=== PATIENT | female | born 1975 | race Caucasian/White ===

== ENCOUNTER 2018-10-24 07:56 | Emergency (ER) | payer BC, OTHER ==
[~2018-10-24] VITALS: Ht 170.2 cm; Wt 118.4 kg
[~2018-10-24 07:56] MED LIST: ACETAMINOPHN-B1 EACH PO; AUGMENTIN875 MG PO; MACRODANTIN100 MG PO; PROAIR HFA INH8.5 GM; TOPIRAMATE50 MG PO; Z.0.LISINOPRIL20 MG PO; Z.0.TESSALON PERLE10 PO; Z.0.TOPAMAX100 MG MT
--- OUTSIDE RECORDS SUMMARY | 2018-10-24 07:59 | XMS REPORT | Encounter Summary ---
Author Organization Unknown Address [address] [place] [address] Phone [phone] Reason for Visit Medical Complaint Instructions 1. Acute urinary tract infection urinalysis, dipstick Macrobid 100 mg capsule culture, urine Discussion Note: None recorded. Patient educational handouts: No information available. Plan of Care Patient Instructions take antibiotics as prescribed. increase fluids. otc tylenol or ibuprofen prn for pain. will contact patient when results of culture are finalized. follow up pcp Reminders Provider Appointments None recorded. Lab Urinalysis, Dipstick 06/11/2017 [facility] Culture, Urine 06/11/2017 [facility] Referral None recorded. Procedures None recorded. Surgeries None recorded. Imaging None recorded. Medications Name Start Date cyclobenzaprine 10 mg tablet Macrobid 100 mg capsule Take 1 capsule every 12 hours by oral route for 5 days. methocarbamol 750 mg tablet pentazocine 50 mg-naloxone 0.5 mg tablet Promethazine VC 6.25 mg-5 mg/5 mL syrup Medications Administered None recorded. Vitals Height Weight BMI Blood Pressure 5 ft 7 in 270 lbs 42.3 kg/m2 120/80 mm[Hg] Lab Results Date Name Specimen Result Interpretation Description Value Range Status Address Urinalysis, Dipstick Color : Yellow [facility]: [address] [place] [address] Clarity : Clear [facility]: [address] [place] [address] Leukocytes : Small [facility]: [address] [place] [address] Nitrites : Positive [facility]: [address] [place] [address] Urobilinogen : Normal [facility]: [address] [place] [address] Protein : 300 [facility]: [address] [place] [address] Ph : 6.5 [facility]: [address] [place] [address] Blood : Small [facility]: [address] [place] [address] Specific Sigurd : 1.005 [facility]: [address] [place] [address] Ketones : Negative [facility]: [address] [place] [address] Bilirubin : Negative [facility]: [address] [place] [address] Glucose Negative [facility]: [address] [place] [address] Comments : [facility]: [facility] Allergies Code Code System Name Reaction Severity Status Onset 267 RxNorm Codeine Rash Severe Active 151026 RxNorm Levaquin Anaphylaxis Severe Active Sulfa (Sulfonamide Antibiotics) Itching Severe Active 648498 RxNorm Vicodin Itching Severe Active Problems Name Status Onset Date Source Acute Maxillary Sinusitis Active Encounter Sore Throat Symptom Active Encounter Allergic Rhinitis Active Encounter Respiratory Tract Congestion and Cough Active Encounter Procedures Date Name Performed by Cholecystectomy Information not available Vaccine List Vaccine Type influenza, injectable, quadrivalent 07/18/2016 Social History Smoking Status Never Smoker Past Encounters 06/11/2017 Acute Urinary Tract Infection Yury Matt, [facility]: [address] [place] [address], Ph. History of Present Illness [id number] Reported By: Patient HPI: Location: urethra. Quality: burning. Severity: mild, moderate. Duration: constant. Onset/Timing: gradual. Context: no known exposure to STD, no prior history of STDs, history of urine cultures/antibiotic treatment, wipes anterior to posterior, voids after intercourse. Modifying factors OTC medication. Associated Symptoms: no fever/chills, no flank pain, no jaundice, no blood in the urine, no pain during urination, no vaginal discharge, no blisters on genitals, no rash on genitals, no muscle aches, no headache, urgency, urinary frequency Review of Systems:ROS as noted in the HPI Review of Systems Basic Reported By: Patient Physical Exam Adult Basic, Adult Female Complete Reported By: Patient Constitutional: General Appearance: healthy-appearing, morbidly obese. Level of Distress: NAD. Ambulation: ambulating normally Psychiatric: Mental Status: active and alert Lungs: Respiratory effort: no dyspnea, no tachypnea, no use of accessory muscles, no intercostal retractions. Auscultation: breath sounds normal Cardiovascular: Heart Auscultation: RRR, no murmurs Abdomen: Inspection and Palpation: soft, non-distended, no tenderness, no guarding, no rebound tenderness, no masses, no CVA tenderness
--- OUTSIDE RECORDS SUMMARY | 2018-10-24 07:59 | XMS REPORT ---
Author Author [facility] Address Unknown Phone Unavailable Care Team Providers Care Weigher Bulker Name Role Phone LAYNE GOLDEN Unavailable Unavailable Payers Payer Name Policy Type Policy Number Effective Date Expiration Date Problems This patient has no known problems. Allergies, Adverse Reactions, Alerts Allergy Name Allergy Type Status Severity Reaction(s) Onset Date Inactive Date Treating Clinician Comments codeine phosphate DA Active [place] 2017-12-14 00:00:00 hydrocodone bit DA Active [place] 2017-12-14 00:00:00 Cephalexin Monohydrate DA Active [place] 2017-12-14 00:00:00 morphine DA Active 2017-12-14 00:00:00 sulfamethoxazole DA Active 2017-12-14 00:00:00 trimethoprim DA Active 2017-12-14 00:00:00 clarithromycin DA Active 2017-12-14 00:00:00 levofloxacin DA Active [place] 2017-12-14 00:00:00 Medications This patient has no known medications. Results Test Description Test Time Test Comments Text Results Atomic Results Result Comments CT ABDOMEN/PELVIS [place] [address] Patient Name: FERNANDO SHIRLEY MR #: [id number] : 1975 Age/Sex: 42/F Req #: [id number] Adm Physician: Ordered by: LAYNE GOLDEN MD Report #: [id number] Location: ER Room/Bed: Procedure: [id number] CT/CT ABDOMEN/PELVIS WO Exam Date: 04/07/17 Exam Time: 0745 REPORT STATUS: Signed PROCEDURE: CT ABDOMEN AND PELVIS WITHOUT CONTRAST TECHNIQUE: The abdomen and pelvis were scanned utilizing a multidetector helical scanner from the diaphragm to the lesser trochanter. No IV contrast was administered as per physician request. Coronal and sagittal multiplanar reformations were obtained. COMPARISON: CT abdomen and pelvis 10/27/2016. CT abdomen and pelvis 05/17/2016. INDICATIONS: RIGHT FLANK PAIN, URINARY FREQUENCY FINDINGS: ABSENCE OF INTRAVENOUS CONTRAST DECREASES SENSITIVITY FOR DETECTION OF FOCAL LESIONS AND VASCULAR PATHOLOGY. LOWER THORAX: Normal. HEPATOBILIARY: No focal hepatic lesions. No biliary ductal dilatation. Stable hypodensity in the right lobe of the liver, series 3 image 14. SPLEEN: No splenomegaly. PANCREAS: No focal masses or ductal dilatation. ADRENALS: No adrenal nodules. KIDNEYS/URETERS: No hydronephrosis, stones, or solid mass lesions. PELVIC ORGANS/BLADDER: Left ovarian cyst. Normal right ovary. Normal uterus. Normal urinary bladder. PERITONEUM / RETROPERITONEUM: No free air or fluid. LYMPH NODES: No lymphadenopathy. VESSELS: Unremarkable. GI TRACT: No distention or wall thickening. Normal appendix. Moderate amount obtained feces limits intraluminal evaluation of the colon. BONES AND SOFT TISSUES: Minimal degenerative changes of the lumbar spine. Bilateral flank injection granulomas. IMPRESSION: No acute abnormality of the abdomen and pelvis. Dictated by: Ev Leyva M.D. on 04/07/2017 at 9:10 Electronically approved by: Ev Leyva M.D. on 04/07/2017 at 9:10 Dictated By: EV LEYVA MD 9 Transcribed By: CHEL on 04/07/17909 COPY TO: LAYNE GOLDEN MD
--- OUTSIDE RECORDS SUMMARY | 2018-10-24 07:59 | XMS REPORT | Continuity of Care Document ---
Author Author [facility] Address Unknown Phone Unavailable Problems Problem Status Onset Date Classification Date Reported Comments Source Acute urinary tract infection 06/11/2017 Diagnosis 06/11/2017 [facility] Dysuria 10/26/2016 Diagnosis 10/26/2016 [facility] Candidiasis of vagina 10/26/2016 Diagnosis 10/26/2016 [facility] Acute Maxillary Sinusitis Problem 06/11/2017 [facility] Sore Throat Symptom Problem 06/11/2017 [facility] Allergic Rhinitis Problem 06/11/2017 [facility] Respiratory Tract Congestion and Cough Problem 06/11/2017 [facility] Medications Medication Details Route Status Patient Instructions Ordering Provider Order Date Source Cyclobenzaprine hydrochloride 10 MG Oral Tablet cyclobenzaprine 10 mg tablet Active [facility] NITROFURANTOIN, MACROCRYSTALS 25 MG / Nitrofurantoin, Monohydrate 75 MG Oral Capsule [Macrobid] Macrobid 100 mg capsule Take 1 capsule every 12 hours by oral route for 5 days. Active [facility] Methocarbamol 750 MG Oral Tablet methocarbamol 750 mg tablet Active [facility] Naloxone 0.5 MG / Pentazocine 50 MG Oral Tablet pentazocine 50 mg-naloxone 0.5 mg tablet Active [facility] Phenylephrine Hydrochloride 1 MG/ML / Promethazine Hydrochloride 1.25 MG/ML Oral Solution Promethazine VC 6.25 mg-5 mg/5 mL syrup Active [facility] Fluconazole 150 MG Oral Tablet [Diflucan] Diflucan 150 mg tablet Take 1 tablet every day by oral route for 1 day. Active [facility] Allergies, Adverse Reactions, Alerts Substance Category Reaction Severity Reaction type Status Date Reported Comments Source Codeine Rash Severe Allergy to substance 11/11/2012 [facility] Levaquin Anaphylaxis Severe Allergy to substance 11/11/2012 [facility] Vicodin Itching Severe Allergy to substance 11/11/2012 [facility] Sulfa (Sulfonamide Antibiotics) Itching Severe Allergy to substance 12/23/2013 [facility] Immunizations Immunization Date Given Site Status Last Updated Comments Source influenza, injectable, quadrivalent 07/18/2016 completed [facility] Results Order Name Results Value Reference Range Date Interpretation Comments Source Urinalysis macro (dipstick) panel - Urine COLOR : Yellow 06/11/2017 [facility] Urinalysis macro (dipstick) panel - Urine CLARITY : Clear 06/11/2017 [facility] Urinalysis macro (dipstick) panel - Urine LEUKOCYTES : Small 06/11/2017 [facility] Urinalysis macro (dipstick) panel - Urine NITRITES : Positive 06/11/2017 [facility] Urinalysis macro (dipstick) panel - Urine UROBILINOGEN : Normal 06/11/2017 [facility] Urinalysis macro (dipstick) panel - Urine PROTEIN : 300 06/11/2017 [facility] Urinalysis macro (dipstick) panel - Urine pH : 6.5 06/11/2017 [facility] Urinalysis macro (dipstick) panel - Urine BLOOD : Small 06/11/2017 [facility] Urinalysis macro (dipstick) panel - Urine SPECIFIC GRAVITY : 1.005 06/11/2017 [facility] Urinalysis macro (dipstick) panel - Urine KETONES : Negative 06/11/2017 [facility] Urinalysis macro (dipstick) panel - Urine BILIRUBIN : Negative 06/11/2017 [facility] Urinalysis macro (dipstick) panel - Urine GLUCOSE Negative 06/11/2017 [facility] Urinalysis macro (dipstick) panel - Urine COLOR : Red 10/26/2016 [facility] Urinalysis macro (dipstick) panel - Urine CLARITY : Clear 10/26/2016 [facility] Urinalysis macro (dipstick) panel - Urine LEUKOCYTES : Large 10/26/2016 [facility] Urinalysis macro (dipstick) panel - Urine NITRITES : Negative 10/26/2016 [facility] Urinalysis macro (dipstick) panel - Urine UROBILINOGEN : Normal 10/26/2016 [facility] Urinalysis macro (dipstick) panel - Urine PROTEIN : Negative 10/26/2016 [facility] Urinalysis macro (dipstick) panel - Urine pH : 5.0 10/26/2016 [facility] Urinalysis macro (dipstick) panel - Urine BLOOD : Large 10/26/2016 [facility] Urinalysis macro (dipstick) panel - Urine SPECIFIC GRAVITY : 1.005 10/26/2016 [facility] Urinalysis macro (dipstick) panel - Urine KETONES : Negative 10/26/2016 [facility] Urinalysis macro (dipstick) panel - Urine BILIRUBIN : Negative 10/26/2016 [facility] Urinalysis macro (dipstick) panel - Urine GLUCOSE Negative 10/26/2016 [facility] Vital Signs Vital Sign Value Date Comments Source Diastolic (mm Hg) 80 06/11/2017 [facility] Height 67 06/11/2017 [facility] Systolic (mm Hg) 120 06/11/2017 [facility] Weight 270 06/11/2017 [facility] Diastolic (mm Hg) 80 10/26/2016 [facility] Height 67 10/26/2016 [facility] Systolic (mm Hg) 120 10/26/2016 [facility] Weight 284 10/26/2016 [facility] Encounters Location Location Details Encounter Type Encounter Number Reason For Visit Attending Provider ADM Date DC Date Status Source [place] - [facility] - [id number] Gardiner[facility]: [address] [place] [address], Ph. [id number] Yury Matt 10/26/2016 [facility] [place] - [facility] - [id number] [facility]: [address] [place] [address], Ph. [id number] Yury Matt 06/11/2017 [facility] Procedures Procedure Code Date Perfomer Comments Source Cholecystectomy [facility]
--- OUTSIDE RECORDS SUMMARY | 2018-10-24 07:59 | XMS REPORT | Encounter Summary ---
Author Organization Unknown Address [address] [place] [address] Phone [phone] Reason for Visit Medical Complaint Instructions 1. Dysuria urinalysis, dipstick painful urination (dysuria): care instructions Macrobid 100 mg capsule culture, urine 2. Candidiasis of vagina vaginal yeast infection: care instructions Diflucan 150 mg tablet Discussion Note: None recorded. Plan of Care Patient Instructions take antibiotics as prescribed. increase fluids. otc tylenol or ibuprofen prn for pain. will contact patient when results of culture are finalized. follow up pcp Reminders Provider Appointments None recorded. Lab Urinalysis, Dipstick 10/26/2016 [facility] Culture, Urine 10/26/2016 [facility] Referral None recorded. Procedures None recorded. Surgeries None recorded. Imaging None recorded. Medications Name Start Date Diflucan 150 mg tablet Take 1 tablet every day by oral route for 1 day. Macrobid 100 mg capsule Take 1 capsule every 12 hours by oral route for 7 days. Medications Administered None recorded. Vitals Height Weight BMI Blood Pressure 5 ft 7 in 284 lbs 44.5 120/80 Lab Results Date Name Specimen Result Interpretation Description Value Range Status Address Urinalysis, Dipstick Color : Red [facility]: [address] [place] [address] Clarity : Clear [facility]: [address] [place] [address] Leukocytes : Large [facility]: [address] [place] [address] Nitrites : Negative [facility]: [address] [place] [address] Urobilinogen : Normal [facility]: [address] [place] [address] Protein : Negative [facility]: [address] [place] [address] Ph : 5.0 [facility]: [address] [place] [address] Blood : Large [facility]: [address] [place] [address] Specific Tracy : 1.005 [facility]: [address] [place] [address] Ketones : Negative [facility]: [address] [place] [address] Bilirubin : Negative [facility]: [address] [place] [address] Glucose Negative [facility]: [address] [place] [address] Allergies Code Code System Name Reaction Severity Onset 2670 RxNorm Codeine Rash Severe 648182 RxNorm Levaquin Anaphylaxis Severe Sulfa (Sulfonamide Antibiotics) Itching Severe 820149 RxNorm Vicodin Itching Severe Problems Name Status Onset Date Source Acute Maxillary Sinusitis Active Encounter Sore Throat Symptom Active Encounter Allergic Rhinitis Active Encounter Respiratory Tract Congestion and Cough Active Encounter Procedures Date Name Performed by Cholecystectomy Information not available Vaccine List Vaccine Type influenza, injectable, quadrivalent 07/17/2016 Social History Smoking Status Never Smoker Past Encounters 10/26/2016 Dysuria; Candidiasis of Vagina Yury Mtat, [facility]: [address] [place] [address], Ph. History of Present Illness [id number] Reported By: Patient HPI: Location: urethra. Quality: pressure, burning. Severity: mild. Duration: started 1 day ago, constant. Onset/Timing: gradual. Context: not sexually active, no known exposure to STD, no prior history of STDs, wipes anterior to posterior. Modifying factors OTC medication. Associated Symptoms: no fever/chills, no flank pain, no jaundice, no blood in the urine, no vaginal discharge, no urgency, no blisters on genitals, no rash on genitals, no muscle aches, no headache, pain during urination, painful inability to urinate Review of Systems:ROS as noted in the HPI Review of Systems Basic Reported By: Patient Physical Exam Adult Basic, Adult Female Complete Reported By: Patient Constitutional: General Appearance: morbidly obese. Level of Distress: NAD. Ambulation: [...]
[2018-10-24] MEDS ORDERED: SODIUM CHLORIDE 0.9% 1000ML 1,000 ML IV STA (08:21)
[2018-10-24] MEDS ORDERED: KETOROLAC TROMETHAMINE 30 MG/ML VIAL IV STA (08:21)
[2018-10-24] MEDS ORDERED: ONDANSETRON HCL INJ 2MG/ML 2ML 2 MG/ML VIAL IV STA (08:41)
[2018-10-24 08:46] LABS: BASOPHILS # (AUTO) 0.1 (0.0-0.1); BASOPHILS % 0.8 % (0.0-1.0); EOSINOPHILS # (AUTO) 0.4 (0.0-0.4); EOSINOPHILS % 5.6 % (0.0-6.0); HEMATOCRIT 42.3 % (34.2-44.1); HEMOGLOBIN 14.2 g/dL (12.0-16.0); LYMPHOCYTES # (AUTO) 1.9 (1.0-3.2); LYMPHOCYTES % 28.7 % (18.0-39.1); MEAN CORPUSCULAR HEMOGLOBIN 30.3 pg (28-32); MEAN CORPUSCULAR HGB CONC 33.6 g/dL (31-35); MEAN CORPUSCULAR VOLUME 90.4 fL (81-99); MONOCYTES # (AUTO) 0.6 (0.2-0.8); MONOCYTES % 8.4 % (4.4-11.3); NEUTROPHILS # (AUTO) 3.7 (2.1-6.9); NEUTROPHILS % 56.2 % (38.7-80.0); PLATELET COUNT 272 x10e3/uL (140-360); RED BLOOD COUNT 4.68 x10e6/uL (3.6-5.1); RED CELL DISTRIBUTION WIDTH 12.3 % (11.7-14.4)
[2018-10-24 09:00] LABS: BILIRUBIN,URINE NEGATIVE (NEGATIVE); CLARITY,URINE CLEAR (CLEAR); COLOR,URINE YELLOW (YELLOW); KETONES,URINE 1+ (NEGATIVE); LEUKOCYTE ESTERASE ,URINE NEGATIVE (NEGATIVE); NITRITE,URINE NEGATIVE (NEGATIVE); PROTEIN,URINE DIPSTICK NEGATIVE (NEGATIVE); URINE UROBILINOGEN 0.2 mg/dL (0.2 - 1)
[2018-10-24] MEDS ORDERED: FLAGYL250 MG (09:00)
[2018-10-24] MEDS ORDERED: CIPRO500 MG PO (09:00)
[2018-10-24] MEDS ORDERED: LISINOPRIL10 MG PO (09:00)
[2018-10-24 09:01] LABS: INR 0.93
[2018-10-24 09:02] LABS: PARTIAL THROMBOPLASTIN TIME 27.5 seconds (23.8-35.5)
[2018-10-24 09:03] LABS: ALANINE AMINOTRANSFERASE 23 IU/L (0-55); ALBUMIN 4.1 g/dL (3.5-5.0); ALBUMIN/GLOBULIN RATIO 1.5 (0.8-2.0); ALKALINE PHOSPHATASE 65 IU/L (40-150); BLOOD UREA NITROGEN 11 mg/dL (7-26); BUN/CREATININE RATIO 14 (6-25); CALCIUM 9.4 mg/dL (8.4-10.2); CARBON DIOXIDE 25 mmol/L (22-29); CHLORIDE 104 mmol/L (98-107); EST GLOMERULAR FILTRATION RATE > 60 ML/MIN (60-); GLUCOSE 116 mg/dL (74-118); SODIUM 139 mmol/L (136-145)
[2018-10-24 09:03] LABS: BACTERIA,URINE FEW /HPF; EPITHELIAL CELLS,URINE MANY /LPF; PREGNANCY TEST, URINE NEGATIVE (NEGATIVE); WBC,URINE (MAN) 0-5 /HPF (0-5)
[2018-10-24] MEDS ORDERED: IOPAMIDOL 370 MG/ML 200 ML INFUS..BTL INJ ONE (10:47)
[2018-10-24] MEDS ORDERED: SODIUM CHLORIDE 0.9% 50ML 50 ML ONE (10:47)
--- NOTE | 2018-10-24 12:00 | Diagnostic Imaging Report ---
EXAM: CT Abdomen and Pelvis without and with contrast INDICATION: Left flank pain query renal stone or diverticulitis. COMPARISON: CT abdomen/pelvis with contrast 11/30/2011. TECHNIQUE: Abdomen and pelvis were scanned utilizing a multidetector helical scanner from the lung base to the pubic symphysis before and after administration of IV contrast. Coronal and sagittal reformations were obtained. Renal stone and routine protocol was performed. Scan was performed when during portal venous phase. IV CONTRAST: 100 cc [id number] ORAL CONTRAST: None. COMPLICATIONS: None RADIATION DOSE: Total DLP: 1800.3 mGy*cm Dose modulation, iterative reconstruction, and/or weight based adjustment of the mA/kV was utilized to reduce the radiation dose to as low as reasonably achievable. FINDINGS: LINES and TUBES: None. LOWER THORAX: There is a 5 mm solid nodule in the left lower lobe on series 5, image 1. There is a 3 mm right lower lobe nodule on image 6. There is a 2 mm hyperdense nodule within the left lower lobe on image 2, which may be partially calcified. HEPATOBILIARY: Similar size of a 2.6 cm hypodense lesion within the hepatic dome and a 2.3 cm segment 4 lesion adjacent to the falciform ligament, compared to CT on 11/30/2011. The prior study demonstrated peripheral nodular enhancement of the hepatic dome lesion. The segment 4 lesion demonstrates peripheral nodular enhancement on the current study. Diffuse mild fatty liver. No evidence of biliary ductal dilatation. GALLBLADDER: Surgically absent. SPLEEN: No splenomegaly. Calcified splenic granuloma. PANCREAS: No focal masses or ductal dilatation. ADRENALS: No adrenal nodules KIDNEYS/URETERS: Kidneys enhance symmetrically. No evidence of hydronephrosis or solid mass. Likely punctate 1 mm nonobstructing left midpole renal stones on series 3, images 80 and 82. No evidence of ureteral stone. GI TRACT: No evidence of wall thickening or distension. Appendix is normal. PELVIC ORGANS/BLADDER: Unremarkable. LYMPH NODES: No lymphadenopathy. VESSELS: There are scattered atherosclerotic calcifications in the aorta and branch vessels. PERITONEUM / RETROPERITONEUM: No free air or fluid. BONES AND SOFT TISSUES: Unremarkable. CONCLUSION: Likely punctate 1 mm nonobstructing left midpole renal stones. No CT evidence of diverticulosis or diverticulitis. Similar appearance of two hypodense hepatic lesions to CT on 11/30/2011, likely representing hemangiomas. Fatty liver. Bilateral lower lobe pulmonary nodules, measuring up to 5 mm in the left lower lobe. In a low risk patient, the findings are likely benign and require no further follow-up. If there is clinical risk factor for malignancy such as smoking, an optional follow-up chest CT may be considered in 12 months. Signed by: Dr. Valorie Bennett MD on 10/24/2018 11:57 AM
[2018-10-24 13:04] VITALS: BP 128/55
== END 2018-10-24 13:11 | disposition home or self-care (01) ==
LOC: ER 07:56
DX: R10.32 Left lower quadrant pain (principal); R11.0 Nausea; I10 Essential (primary) hypertension
CPT/HCPCS: 36415; 74178; 80053; 81001; 81025; 85025; 85610; 85730; 87086; 99284; J1885; J2405; J7030; Q9967

== ENCOUNTER 2019-03-10 16:19 | Emergency (ER) | payer BC, OTHER ==
[~2019-03-10] VITALS: Ht 170.2 cm; Wt 118.4 kg
[~2019-03-10 16:19] MED LIST changes: +CIPRO500 MG PO; +FLAGYL250 MG; +LISINOPRIL10 MG PO
--- OUTSIDE RECORDS SUMMARY | 2019-03-10 16:23 | XMS REPORT | Continuity of Care Document ---
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 Role Phone [employer] Unavailable Unavailable Problems Problem Status Onset Date Classification Date Reported Comments Source Acute urinary tract infection 06/11/2017 Diagnosis 06/11/2017 [facility] Dysuria 10/26/2016 Diagnosis 10/26/2016 [facility] Candidiasis of vagina 10/26/2016 Diagnosis 10/26/2016 [facility] Acute Maxillary Sinusitis Problem 06/11/2017 [facility] Sore Throat Symptom Problem 06/11/2017 [facility] Allergic Rhinitis Problem 06/11/2017 [facility] Respiratory Tract Congestion and Cough Problem 06/11/2017 [facility] Abdominal pain Active Problem 10/24/2018 [facility] Medications Medication Details Route Status Patient Instructions Ordering Provider Order Date Source Nitrofurantoin Macrocrystal (Macrodantin) 100 Mg Capsule, 100 Mg Oral Twice A Day Active 03/20/2017 [facility] Lisinopril 20 Mg Tablet, 20 Mg Oral Bedtime Active 10/27/2016 [facility] Butalbital/Acetaminophen (Acetaminophn-Butalbital 325-50) 1 Each Tablet, 325 Mg Oral Active 04/20/2016 [facility] Albuterol Sulfate (Proair Hfa Inhaler*) 8.5 Gm Inh, As Needed Active 11/24/2015 [facility] Topiramate (Topamax) 100 Mg Tablet, 1 Mouth/Throat Nightly Active 06/23/2012 [facility] Amoxicillin/Clavulanate K (Augmentin) 875 Mg Tab, 1 Tab Oral Twice A Day Active 11/30/2011 [facility] Benzonatate (Tessalon Perle) 100 Mg Capsule, 2 Tab Oral Tid Prn Active 11/30/2011 [facility] Fluconazole 150 MG Oral Tablet [Diflucan] Diflucan 150 mg tablet Take 1 tablet every day by oral route for 1 day. Active [facility] NITROFURANTOIN, MACROCRYSTALS 25 MG / Nitrofurantoin, Monohydrate 75 MG Oral Capsule [Macrobid] Macrobid 100 mg capsule Take 1 capsule every 12 hours by oral route for 5 days. Active [facility] Cyclobenzaprine hydrochloride 10 MG Oral Tablet cyclobenzaprine 10 mg tablet Active [facility] Methocarbamol 750 MG Oral Tablet methocarbamol 750 mg tablet Active [facility] Naloxone 0.5 MG / Pentazocine 50 MG Oral Tablet pentazocine 50 mg-naloxone 0.5 mg tablet Active [facility] Phenylephrine Hydrochloride 1 MG/ML / Promethazine Hydrochloride 1.25 MG/ML Oral Solution Promethazine VC 6.25 mg-5 mg/5 mL syrup Active [facility] Ciprofloxacin Hcl (Cipro) 500 Mg Tablet Every 12 Hours Active [facility] Lisinopril 10 Mg Tablet Daily Active [facility] Metronidazole (Flagyl) 250 Mg Tablet Active [facility] Allergies, Adverse Reactions, Alerts Substance Category Reaction Severity Reaction type Status Date Reported Comments Source Levaquin Anaphylaxis Severe Allergy to substance 11/11/2012 [facility] Vicodin Itching Severe Allergy to substance 11/11/2012 [facility] Sulfa (Sulfonamide Antibiotics) Itching Severe Allergy to substance 12/23/2013 [facility] Codeine RASH Mild Allergy to Substance Active 10/24/2018 [facility] Cephalexin Monohydrate RASH Mild Allergy to Substance Active 10/24/2018 [facility] Hydrocodone RASH Mild Allergy to Substance Active 10/24/2018 [facility] Naproxen NAUSEA Mild Propensity to adverse reactions Active 10/24/2018 [facility] Sulfamethoxazole RASH Mild Allergy to Substance Active 10/24/2018 [facility] Clarithromycin RASH Mild Allergy to Substance Active 10/24/2018 [facility] Levofloxacin RASH Mild Allergy to Substance Active 10/24/2018 [facility] Immunizations Immunization Date Given Site Status Last Updated Comments Source influenza, injectable, quadrivalent 07/18/2016 completed [facility] Results Order Name Results Value Reference Range Date Interpretation Comments Source Blood leukocytes automated count (number/volume) 6.63 4.8 - 10.8 10/24/2018 [facility] Blood erythrocytes automated count (number/volume) 4.68 3.6 - 5.1 10/24/2018 [facility] Blood hemoglobin measurement (moles/volume) 14.2 12.0 - 16.0 10/24/2018 [facility] Automated blood hematocrit (volume fraction) 42.3 34.2 - 44.1 10/24/2018 [facility] Automated erythrocyte mean corpuscular volume 90.4 81 - 99 10/24/2018 [facility] Automated erythrocyte mean corpuscular hemoglobin (mass per erythrocyte) 30.3 28 - 32 10/24/2018 [facility] Automated erythrocyte mean corpuscular hemoglobin concentration measurement (mass/volume) 33.6 31 - 35 10/24/2018 [facility] RDW BldCo-Rto 12.3 11.7 - 14.4 10/24/2018 [facility] Automated blood platelet count (count/volume) 272 140 - 360 10/24/2018 [facility] Automated blood segmented neutrophil count as percentage of total leukocytes 56.2 38.7 - 80.0 10/24/2018 [facility] Automated blood lymphocyte count as percentage ot total leukocytes 28.7 18.0 - 39.1 10/24/2018 [facility] Automated blood monocyte count as percentage of total leukocytes 8.4 4.4 - 11.3 10/24/2018 [facility] Automated blood eosinophil count as percentage of total leukocytes 5.6 0.0 - 6.0 10/24/2018 [facility] Automated blood basophil count as percentage of total leukocytes 0.8 0.0 - 1.0 10/24/2018 [facility] IM GRANULOCYTES % 0.3 0.0 - 1.0 10/24/2018 [facility] Automated blood neutrophil count 3.7 2.1 - 6.9 10/24/2018 [facility] Blood lymphocytes count (number/volume) 1.9 1.0 - 3.2 10/24/2018 [facility] Blood monocytes automated count (number/volume) 0.6 0.2 - 0.8 10/24/2018 [facility] Automated blood eosinophil count 0.4 0.0 - 0.4 10/24/2018 [facility] Automated blood basophil count (count/volume) 0.1 0.0 - 0.1 10/24/2018 [facility] Absolute Immature Granulocyte (auto 0.02 0 - 0.1 10/24/2018 [facility] Prothrombin time (PT) in platelet poor plasma by coagulation assay 13.0 11.9 - 14.5 10/24/2018 [facility] INR in Platelet poor plasma by Coagulation assay 0.93 10/24/2018 [facility] Activated partial thromboplastin time (aPTT) in platelet poor plasma bycoagulation assay 27.5 23.8 - 35.5 10/24/2018 [facility] Serum or plasma sodium measurement (moles/volume) 139 136 - 145 10/24/2018 [facility] Serum or plasma potassium measurement (moles/volume) 4.0 3.5 - 5.1 10/24/2018 [facility] Serum or plasma chloride measurement (moles/volume) 104 98 - 107 10/24/2018 [facility] Serum or plasma carbon dioxide, total measurement (moles/volume) 25 22 - 29 10/24/2018 [facility] Serum or plasma anion gap 14.0 8 - 16 10/24/2018 [facility] Serum or plasma urea nitrogen measurement (mass/volume) 11 7 - 26 10/24/2018 [facility] Serum or plasma creatinine measurement (mass/volume) 0.80 0.57 - 1.11 10/24/2018 [facility] Serum or plasma urea nitrogen/creatinine mass ratio 14 6 - 25 10/24/2018 [facility] Estimated glomerular filtration rate (GFR) determination > 60 60 10/24/2018 [facility] Glucose measurement 116 74 - 118 10/24/2018 [facility] Serum or plasma calcium measurement (mass/volume) 9.4 8.4 - 10.2 10/24/2018 [facility] Serum or plasma total bilirubin measurement (mass/volume) 0.7 0.2 - 1.2 10/24/2018 [facility] Aspartate Amino Transf (AST/SGOT) 21 5 - 34 10/24/2018 [facility] Serum or plasma alanine aminotransferase measurement (enzymatic activity/volume) 23 0 - 55 10/24/2018 [facility] Serum or plasma protein measurement (mass/volume) 6.8 6.5 - 8.1 10/24/2018 [facility] Serum or plasma albumin measurement (mass/volume) 4.1 3.5 - 5.0 10/24/2018 [facility] Plasma globulin measurement (mass/volume) 2.7 2.3 - 3.5 10/24/2018 [facility] Serum or plasma albumin/globulin mass ratio 1.5 0.8 - 2.0 10/24/2018 [facility] Serum or plasma alkaline phosphatase measurement (enzymatic activity/volume) 65 40 - 150 10/24/2018 [facility] Urine color determination YELLOW YELLOW 10/24/2018 [facility] Urine clarity CLEAR CLEAR 10/24/2018 [facility] Specific gravity of Urine by Test strip 1.010 1.010 - 1.025 10/24/2018 [facility] Urine pH measurement by automated test strip 6.5 5 - 7 10/24/2018 [facility] Urine leukocyte esterase detection by dipstick NEGATIVE NEGATIVE 10/24/2018 [facility] Urine nitrite detection NEGATIVE NEGATIVE 10/24/2018 [facility] Urine protein measurement by test strip (mass/volume) NEGATIVE NEGATIVE 10/24/2018 [facility] Urine glucose detection NEGATIVE NEGATIVE 10/24/2018 [facility] Urine ketones detection by automated test strip 1+ NEGATIVE 10/24/2018 [facility] Urine urobilinogen measurement by test strip (mass/volume) 0.2 0.2 - 1 10/24/2018 [facility] Urine total bilirubin measurement (mass/volume) NEGATIVE NEGATIVE 10/24/2018 [facility] Urine erythrocytes detection NEGATIVE NEGATIVE 10/24/2018 [facility] Automated urine sediment leukocyte count by microscopy (number/high power field) 0-5 0 - 5 10/24/2018 [facility] Erythrocytes detection in urine sediment by light microscopy NONE 0 - 5 10/24/2018 [facility] Bacteria detection in urine sediment by light microscopy FEW NONE 10/24/2018 [facility] Epithelial cells detection in urine sediment by light microscopy MANY NONE 10/24/2018 [facility] Urine human chorionic gonadotropin (hCG) detection NEGATIVE NEGATIVE 10/24/2018 [facility] Urinalysis macro (dipstick) panel - Urine COLOR [...] panel - Urine GLUCOSE Negative 10/26/2016 [facility] Pathology Reports No Data Provided for This Section Diagnostic Reports No Data Provided for This Section Consultation Notes No Data Provided for This Section Discharge Summaries No Data Provided for This Section History and Physicals No Data Provided for This Section Vital Signs Vital Sign Value Date Comments [...] Date Status Source [place] - [facility] - [id number] Nick Vernell, [employer]: [id number] [place] [address], Ph. [id number] Yury Matt 10/26/2016 [facility] [place] - [id number] Nick Vernell, [employer]: [address] [place] [address], Ph. [phone] [id number] Yury Matt 06/11/2017 [facility] Departed Emergency Room [id number] LAYNE ALMEIDA MD 10/24/2018 10/24/2018 [facility] Procedures Procedure Code Date Perfomer Comments Source Computed tomography of abdomen and pelvis without then with contrast [id number] 10/24/2018 JUAN PABLO [facility] Cholecystectomy [facility] Assessment and Plan No Data Provided for This Section Plan of Care Plan of Care Date Source Discharge Date 10/24/18 1:11pm Disposition HOME, SELF-CARE Condition at Discharge Stable Instructions/Education Provided Abdominal Pain - Adult Forms Provided Work/School Excuse Prescriptions See Medication Section Referrals LINDSEY AGUILAR MD (NS) Order Date: As needed Address: [address] [place] [id number] Additional Instructions/Education Follow up with PCP in a couple of days Return to ER if worsening of symptoms 10/24/2018 [facility] Social History Social History Date Source Social History Problem Response Recorded Date/Time Onset Date Status Hx Psychiatric Problems No 09/07/2011 5:57pm Not Applicable Not Applicable Smoking Status Start Date Stop Date Never Smoker 10/24/2018 [facility] Smoking Status Never Smoker 11/10/2012 [facility] Family History No Data Provided for This Section Advance Directives Order Name Results Value Date Source Advance Directives Advance Directives Directive Response Recorded Date/Time Does the patient have an advance directive? No 02/27/13 6:06pm Do you have a Directive to Physician? No 10/24/18 8:46am Do you have a Medical Power of Concert Or Lecture Hall Manager? No 10/24/18 8:46am Do you have an out of hospital Do Not Resuscitate Order? No 10/24/18 8:46am Do you have any special needs we should be aware of? No 10/24/18 8:46am Do you have a support person here with you today? No 10/24/18 8:46am Did patient receive Notice of Privacy Practices? Yes 10/24/18 8:46am Did patient receive patient rights and responsibilities? Yes 10/24/18 8:46am 10/24/2018 [facility] Functional Status No Data Provided for This Section
[2019-03-10] MEDS ORDERED: ONDANSETRON HCL INJ 2MG/ML 2ML 2 MG/ML VIAL IV NR (16:31)
[2019-03-10] MEDS ORDERED: SODIUM CHLORIDE 0.9% 1000ML 1,000 ML IV STA (16:31)
[2019-03-10] MEDS ORDERED: ASPIRIN 81 MG CHEW TAB PO ONE (16:45)
[2019-03-10] MEDS ORDERED: LORAZEPAM INJ 2 MG/ML VIAL IV ONE (16:45)
--- NOTE | 2019-03-10 16:45 | NUR ---
RADIOLOGY AT BEDSIDE FOR XRAYS.
[2019-03-10 16:47] LABS: BASOPHILS # (AUTO) 0.1 (0.0-0.1); BASOPHILS % 0.6 % (0.0-1.0); EOSINOPHILS # (AUTO) 0.4 (0.0-0.4); EOSINOPHILS % 4.2 % (0.0-6.0); HEMATOCRIT 41.6 % (34.2-44.1); LYMPHOCYTES # (AUTO) 2.3 (1.0-3.2); MEAN CORPUSCULAR HEMOGLOBIN 29.6 pg (28-32); MEAN CORPUSCULAR HGB CONC 33.7 g/dL (31-35); MEAN CORPUSCULAR VOLUME 87.9 fL (81-99); MONOCYTES # (AUTO) 0.8 (0.2-0.8); MONOCYTES % 8.8 % (4.4-11.3); NEUTROPHILS # (AUTO) 5.9 (2.1-6.9); PLATELET COUNT 325 x10e3/uL (140-360); RED BLOOD COUNT 4.73 x10e6/uL (3.6-5.1); RED CELL DISTRIBUTION WIDTH 12.1 % (11.7-14.4)
[2019-03-10 16:54] LABS: INR 0.88; PROTHROMBIN TIME 12.4 seconds (11.9-14.5)
[2019-03-10 16:55] LABS: PARTIAL THROMBOPLASTIN TIME 26.9 seconds (23.8-35.5)
[2019-03-10 17:02] LABS: ALANINE AMINOTRANSFERASE 11 IU/L (0-55); ALBUMIN 3.9 g/dL (3.5-5.0); ALBUMIN/GLOBULIN RATIO 1.3 (0.8-2.0); ALKALINE PHOSPHATASE 91 IU/L (40-150); ANION GAP 16.8 mmol/L (8-16); BLOOD UREA NITROGEN 15 mg/dL (7-26); BUN/CREATININE RATIO 19 (6-25); CALCIUM 9.6 mg/dL (8.4-10.2); CARBON DIOXIDE 24 mmol/L (22-29); CHLORIDE 103 mmol/L (98-107); CREATINE KINASE 63 IU/L (29-168); CREATININE, SERUM 0.81 mg/dL (0.57-1.11); EST GLOMERULAR FILTRATION RATE > 60 ML/MIN (60-); GLUCOSE 116 mg/dL (74-118); POTASSIUM 3.8 mmol/L (3.5-5.1); SODIUM 140 mmol/L (136-145)
--- NOTE | 2019-03-10 17:02 | Diagnostic Imaging Report ---
EXAMINATION: CHEST SINGLE (PORTABLE) INDICATION: Nausea, lightheadedness. COMPARISON: Chest radiograph 09/07/2011. FINDINGS: TUBES and LINES: None. LUNGS: Lungs are moderately inflated. Lungs are clear. There is no evidence of pneumonia or pulmonary edema. PLEURA: No pleural effusion or pneumothorax. HEART AND MEDIASTINUM: The cardiomediastinal silhouette is unremarkable. BONES AND SOFT TISSUES: No acute osseous abnormality. UPPER ABDOMEN: No free air under the diaphragm. IMPRESSION: No acute radiographic abnormality. Signed by: Dr. Valorie Bennett MD on 03/10/2019 4:59 PM
[2019-03-10 17:20] LABS: BILIRUBIN,URINE NEGATIVE (NEGATIVE); CLARITY,URINE SL CLOUDY (CLEAR); COLOR,URINE YELLOW (YELLOW); KETONES,URINE NEGATIVE (NEGATIVE); LEUKOCYTE ESTERASE ,URINE NEGATIVE (NEGATIVE); NITRITE,URINE NEGATIVE (NEGATIVE); PROTEIN,URINE DIPSTICK NEGATIVE (NEGATIVE); URINE UROBILINOGEN 0.2 mg/dL (0.2 - 1)
[2019-03-10 17:22] LABS: THYROID STIMULATING HORMONE 1.244 uIU/mL (0.350-4.940)
[2019-03-10 17:25] LABS: BACTERIA,URINE RARE /HPF; EPITHELIAL CELLS,URINE FEW /LPF
[2019-03-10 17:36] VITALS: BP 121/79
== END 2019-03-10 18:06 | disposition home or self-care (01) ==
LOC: ER 16:19
DX: R00.2 Palpitations (principal); R11.0 Nausea; F41.1 Generalized anxiety disorder; I10 Essential (primary) hypertension; G43.909 Migraine, unspecified, not intractable, without status migrainosus; Z88.6 Allergy status to analgesic agent; Z88.1 Allergy status to other antibiotic agents; Z88.5 Allergy status to narcotic agent
CPT/HCPCS: 36415; 71045; 80053; 81001; 82550; 82553; 82948; 84443; 84484; 85025; 85379; 85610; 85730; 87086; 93005; 99284; J2060; J2405; J7030

== ENCOUNTER 2019-04-08 08:12 | Emergency (ER) | payer BC, OTHER ==
[~2019-04-08] VITALS: Ht 170.2 cm; Wt 118.4 kg
--- OUTSIDE RECORDS SUMMARY | 2019-04-08 08:15 | XMS REPORT | Continuity of Care Document ---
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 Role Phone [employer] Unavailable Unavailable Problems Problem Status [...] 06/11/2017 [facility] Abdominal pain Active Problem 10/24/2018 [facility] Medications Medication Details Route Status Patient Instructions Ordering Provider Order Date Source Nitrofurantoin Macrocrystal (Macrodantin) 100 Mg Capsule, 100 Mg Oral Twice A Day Active 03/20/2017 [facility] Lisinopril 20 Mg Tablet, 20 Mg Oral Bedtime Active 10/27/2016 [facility] Butalbital/Acetaminophen (Acetaminophn-Butalbital 325-50) 1 Each Tablet, 325 Mg Oral Active 04/20/2016 [facility] Albuterol Sulfate (Proair Hfa Inhaler*) 8.5 Gm Inh, As Needed Active 11/24/2015 [facility] Topiramate (Topamax) 100 Mg Tablet, 1 Mouth/Throat Nightly Active 06/23/2012 [facility] Amoxicillin/Clavulanate K (Augmentin) 875 Mg Tab, 1 Tab Oral Twice A Day Active 11/30/2011 [facility] Benzonatate (Tessalon Perle) 100 Mg Capsule, 2 Tab Oral Tid Prn Active 11/30/2011 [facility] Fluconazole 150 MG Oral Tablet [Diflucan] Diflucan [...] 500 Mg Tablet Every 12 Hours Active [facility] Lisinopril 10 Mg Tablet Daily Active [facility] Metronidazole (Flagyl) 250 Mg Tablet Active [facility] Allergies, Adverse Reactions, Alerts Substance Category Reaction Severity Reaction type Status Date Reported Comments Source Levaquin Anaphylaxis Severe Allergy to substance 11/11/2012 [facility] Vicodin Itching Severe Allergy to substance 11/11/2012 [facility] Sulfa (Sulfonamide Antibiotics) Itching Severe Allergy to substance 12/23/2013 [facility] Codeine RASH Mild Allergy to Substance Active 10/24/2018 [facility] Cephalexin Monohydrate RASH Mild Allergy to Substance Active 10/24/2018 [facility] Hydrocodone RASH Mild Allergy to Substance Active 10/24/2018 [facility] Naproxen NAUSEA Mild Propensity to adverse reactions Active 10/24/2018 [facility] Sulfamethoxazole RASH Mild Allergy to Substance Active 10/24/2018 [facility] Clarithromycin RASH Mild Allergy to Substance Active 10/24/2018 [facility] Levofloxacin RASH Mild Allergy to Substance Active 10/24/2018 [facility] Immunizations Immunization Date Given Site Status Last Updated Comments Source influenza, injectable, quadrivalent 07/18/2016 completed [facility] Results Order Name Results Value Reference Range Date Interpretation Comments Source Blood leukocytes automated count (number/volume) 6.63 4.8 - 10.8 10/24/2018 [facility] Blood erythrocytes automated count (number/volume) 4.68 3.6 - 5.1 10/24/2018 [facility] Blood hemoglobin measurement (moles/volume) 14.2 12.0 - 16.0 10/24/2018 [facility] Automated blood hematocrit (volume fraction) 42.3 34.2 - 44.1 10/24/2018 [facility] Automated erythrocyte mean corpuscular volume 90.4 81 - 99 10/24/2018 [facility] Automated erythrocyte mean corpuscular hemoglobin (mass per erythrocyte) 30.3 28 - 32 10/24/2018 [facility] Automated erythrocyte mean corpuscular hemoglobin concentration measurement (mass/volume) 33.6 31 - 35 10/24/2018 [facility] RDW BldCo-Rto 12.3 11.7 - 14.4 10/24/2018 [facility] Automated blood platelet count (count/volume) 272 140 - 360 10/24/2018 [facility] Automated blood segmented neutrophil count as percentage of total leukocytes 56.2 38.7 - 80.0 10/24/2018 [facility] Automated blood lymphocyte count as percentage ot total leukocytes 28.7 18.0 - 39.1 10/24/2018 [facility] Automated blood monocyte count as percentage of total leukocytes 8.4 4.4 - 11.3 10/24/2018 [facility] Automated blood eosinophil count as percentage of total leukocytes 5.6 0.0 - 6.0 10/24/2018 [facility] Automated blood basophil count as percentage of total leukocytes 0.8 0.0 - 1.0 10/24/2018 [facility] IM GRANULOCYTES % 0.3 0.0 - 1.0 10/24/2018 [facility] Automated blood neutrophil count 3.7 2.1 - 6.9 10/24/2018 [facility] Blood lymphocytes count (number/volume) 1.9 1.0 - 3.2 10/24/2018 [facility] Blood monocytes automated count (number/volume) 0.6 0.2 - 0.8 10/24/2018 [facility] Automated blood eosinophil count 0.4 0.0 - 0.4 10/24/2018 [facility] Automated blood basophil count (count/volume) 0.1 0.0 - 0.1 10/24/2018 [facility] Absolute Immature Granulocyte (auto 0.02 0 - 0.1 10/24/2018 [facility] Prothrombin time (PT) in platelet poor plasma by coagulation assay 13.0 11.9 - 14.5 10/24/2018 [facility] INR in Platelet poor plasma by Coagulation assay 0.93 10/24/2018 [facility] Activated partial thromboplastin time (aPTT) in platelet poor plasma bycoagulation assay 27.5 23.8 - 35.5 10/24/2018 [facility] Serum or plasma sodium measurement (moles/volume) 139 136 - 145 10/24/2018 [facility] Serum or plasma potassium measurement (moles/volume) 4.0 3.5 - 5.1 10/24/2018 [facility] Serum or plasma chloride measurement (moles/volume) 104 98 - 107 10/24/2018 [facility] Serum or plasma carbon dioxide, total measurement (moles/volume) 25 22 - 29 10/24/2018 [facility] Serum or plasma anion gap 14.0 8 - 16 10/24/2018 [facility] Serum or plasma urea nitrogen measurement (mass/volume) 11 7 - 26 10/24/2018 [facility] Serum or plasma creatinine measurement (mass/volume) 0.80 0.57 - 1.11 10/24/2018 [facility] Serum or plasma urea nitrogen/creatinine mass ratio 14 6 - 25 10/24/2018 [facility] Estimated glomerular filtration rate (GFR) determination > 60 60 10/24/2018 [facility] Glucose measurement 116 74 - 118 10/24/2018 [facility] Serum or plasma calcium measurement (mass/volume) 9.4 8.4 - 10.2 10/24/2018 [facility] Serum or plasma total bilirubin measurement (mass/volume) 0.7 0.2 - 1.2 10/24/2018 [facility] Aspartate Amino Transf (AST/SGOT) 21 5 - 34 10/24/2018 [facility] Serum or plasma alanine aminotransferase measurement (enzymatic activity/volume) 23 0 - 55 10/24/2018 [facility] Serum or plasma protein measurement (mass/volume) 6.8 6.5 - 8.1 10/24/2018 [facility] Serum or plasma albumin measurement (mass/volume) 4.1 3.5 - 5.0 10/24/2018 [facility] Plasma globulin measurement (mass/volume) 2.7 2.3 - 3.5 10/24/2018 [facility] Serum or plasma albumin/globulin mass ratio 1.5 0.8 - 2.0 10/24/2018 [facility] Serum or plasma alkaline phosphatase measurement (enzymatic activity/volume) 65 40 - 150 10/24/2018 [facility] Urine color determination YELLOW YELLOW 10/24/2018 [facility] Urine clarity CLEAR CLEAR 10/24/2018 [facility] Specific gravity of Urine by Test strip 1.010 1.010 - 1.025 10/24/2018 [facility] Urine pH measurement by automated test strip 6.5 5 - 7 10/24/2018 [facility] Urine leukocyte esterase detection by dipstick NEGATIVE NEGATIVE 10/24/2018 [facility] Urine nitrite detection NEGATIVE NEGATIVE 10/24/2018 [facility] Urine protein measurement by test strip (mass/volume) NEGATIVE NEGATIVE 10/24/2018 [facility] Urine glucose detection NEGATIVE NEGATIVE 10/24/2018 [facility] Urine ketones detection by automated test strip 1+ NEGATIVE 10/24/2018 [facility] Urine urobilinogen measurement by test strip (mass/volume) 0.2 0.2 - 1 10/24/2018 [facility] Urine total bilirubin measurement (mass/volume) NEGATIVE NEGATIVE 10/24/2018 [facility] Urine erythrocytes detection NEGATIVE NEGATIVE 10/24/2018 [facility] Automated urine sediment leukocyte count by microscopy (number/high power field) 0-5 0 - 5 10/24/2018 [facility] Erythrocytes detection in urine sediment by light microscopy NONE 0 - 5 10/24/2018 [facility] Bacteria detection in urine sediment by light microscopy FEW NONE 10/24/2018 [facility] Epithelial cells detection in urine sediment by light microscopy MANY NONE 10/24/2018 [facility] Urine human chorionic gonadotropin (hCG) detection NEGATIVE NEGATIVE 10/24/2018 [facility] Urinalysis macro (dipstick) panel - Urine COLOR [...] Date Status Source [place] - [facility] [id number] Nick Vernell, INSTRUMENT AND CONTROLS TECHNICIAN-C: [address] [place] [address], Ph. [id number] Yury Matt 10/26/2016 [facility] [place] - [facility] [id number] Nick Vernell, INSTRUMENT AND CONTROLS TECHNICIAN-C: [address] [place] [address], Ph. [id number] Yury Matt 06/11/2017 [facility] Departed Emergency Room [id number] LAYNE ALMEIDA MD 10/24/2018 10/24/2018 [facility] Procedures Procedure Code Date Perfomer Comments Source Computed tomography of abdomen and pelvis without then with contrast [id number] 10/24/2018 JUAN PABLO [facility] Cholecystectomy [facility] Assessment and Plan No Data Provided for This Section Plan of Care Plan of Care Date Source Discharge Date 10/24/18 1:11pm Disposition HOME, SELF-CARE Condition at Discharge Stable Instructions/Education Provided Abdominal Pain - Adult Forms Provided Work/School Excuse Prescriptions See Medication Section Referrals LINDSEY AGUILAR MD (NS) Order Date: As needed Address: [address] [place] [id number] Additional Instructions/Education Follow up with PCP in a couple of days Return to ER if worsening of symptoms 10/24/2018 [facility] Social History Social History Date Source Social History Problem Response Recorded Date/Time Onset Date Status Hx Psychiatric Problems No 09/07/2011 5:57pm Not Applicable Not Applicable Smoking Status Start Date Stop Date Never Smoker 10/24/2018 [facility] Smoking Status Never Smoker 11/10/2012 [facility] Family History No Data Provided for This Section Advance Directives Order Name Results Value Date Source Advance Directives Advance Directives Directive Response Recorded Date/Time Does the patient have an advance directive? No 02/27/13 6:06pm Do you have a Directive to Physician? No 10/24/18 8:46am Do you have a Medical Power of Primary Care Nurse? No 10/24/18 8:46am Do you have an [...] rights and responsibilities? Yes 10/24/18 8:46am 10/24/2018 [facility] Functional Status No Data Provided for This Section
[2019-04-08] MEDS ORDERED: SODIUM CHLORIDE 0.9% 1000ML 1,000 ML IV STA (09:06)
[2019-04-08] MEDS ORDERED: METOCLOPRAMIDE HCL 10 MG/2ML VIAL IV NR (09:15)
[2019-04-08] MEDS ORDERED: KETOROLAC TROMETHAMINE 30 MG/ML VIAL IV NR (09:15)
[2019-04-08] MEDS ORDERED: DIPHENHYDRAMINE HCL INJ 50 MG/ML VIAL IV NR (09:15)
[2019-04-08 09:31] LABS: BASOPHILS # (AUTO) 0.1 (0.0-0.1); BASOPHILS % 0.8 % (0.0-1.0); EOSINOPHILS # (AUTO) 0.3 (0.0-0.4); EOSINOPHILS % 3.3 % (0.0-6.0); HEMATOCRIT 43.5 % (34.2-44.1); HEMOGLOBIN 14.5 g/dL (12.0-16.0); LYMPHOCYTES # (AUTO) 2.3 (1.0-3.2); LYMPHOCYTES % 26.7 % (18.0-39.1); MEAN CORPUSCULAR HEMOGLOBIN 29.9 pg (28-32); MEAN CORPUSCULAR HGB CONC 33.3 g/dL (31-35); MEAN CORPUSCULAR VOLUME 89.7 fL (81-99); MONOCYTES # (AUTO) 0.6 (0.2-0.8); MONOCYTES % 7.6 % (4.4-11.3); NEUTROPHILS # (AUTO) 5.2 (2.1-6.9); NEUTROPHILS % 61.1 % (38.7-80.0); PLATELET COUNT 337 x10e3/uL (140-360); RED BLOOD COUNT 4.85 x10e6/uL (3.6-5.1); RED CELL DISTRIBUTION WIDTH 12.2 % (11.7-14.4)
[2019-04-08 09:52] LABS: ALANINE AMINOTRANSFERASE 15 IU/L (0-55); ALBUMIN/GLOBULIN RATIO 1.4 (0.8-2.0); ALKALINE PHOSPHATASE 74 IU/L (40-150); ANION GAP 13.8 mmol/L (8-16); BLOOD UREA NITROGEN 14 mg/dL (7-26); BUN/CREATININE RATIO 16 (6-25); CALCIUM 9.7 mg/dL (8.4-10.2); CARBON DIOXIDE 26 mmol/L (22-29); CHLORIDE 103 mmol/L (98-107); CREATINE KINASE 60 IU/L (29-168); CREATININE, SERUM 0.85 mg/dL (0.57-1.11); EST GLOMERULAR FILTRATION RATE > 60 ML/MIN (60-); GLUCOSE 107 mg/dL (74-118); POTASSIUM 3.8 mmol/L (3.5-5.1); SODIUM 139 mmol/L (136-145)
[2019-04-08 09:53] LABS: BACTERIA,URINE FEW /HPF; EPITHELIAL CELLS,URINE MODERATE /LPF; WBC,URINE (MAN) 0-5 /HPF (0-5)
[2019-04-08 09:54] LABS: CLARITY,URINE CLEAR (CLEAR); COLOR,URINE YELLOW (YELLOW); LEUKOCYTE ESTERASE ,URINE NEGATIVE (NEGATIVE); MUCUS,URINE FEW (RARE); NITRITE,URINE NEGATIVE (NEGATIVE); PROTEIN,URINE DIPSTICK NEGATIVE (NEGATIVE)
[2019-04-08 09:55] LABS: BILIRUBIN,URINE NEGATIVE (NEGATIVE); KETONES,URINE NEGATIVE (NEGATIVE); URINE UROBILINOGEN 0.2 mg/dL (0.2 - 1)
--- NOTE | 2019-04-08 10:29 | Diagnostic Imaging Report ---
Exam: Head CT without contrast History: Headache, migraines, weakness, palpitations. Comparison studies: None Technique: Axial images were obtained from the skull base to the vertex. Coronal and sagittal images reconstructed from the axial data. Dose modulation, iterative reconstruction, and/or weight based adjustment of the mA/kV was utilized to reduce the radiation dose to as low as reasonably achievable. Radiation dose: Total DLP: 921 mGy*cm. Estimated effective dose: DLP x 0.015 Intravenous contrast: None Findings: Scalp: No abnormalities. Bones: No fractures, blastic or lytic lesions. Brain sulci: Appropriate for age. Ventricles: Normal in size and configuration. No hydrocephalus. Extra-axial spaces: No masses, no fluid collection. Parenchyma: No abnormal densities. No masses, acute hemorrhage, acute or chronic vascular insults. Sellar/suprasellar region: Incidental 9 mm hypodense nodule or cyst in the right pituitary gland, asymmetric to the right. Lesion has a superior convex margin but does not extend into the suprasellar cistern nor exert mass effect on the optic chiasm. Craniocervical junction: Patent foramen magnum. No Chiari one malformation. Included paranasal sinuses: Clear. Middle ear and included mastoids: Clear. IMPRESSION: 1. No acute intracranial abnormalities. 2. Incidental 9 mm right intrasellar lesion may be a pituitary adenoma or Rathke's cleft cyst. Recommend nonemergent sella MRI without/with IV contrast to further evaluate. Signed by: Dr. Ian Gordon M.D. on 04/08/2019 10:26 AM
--- NOTE | 2019-04-08 10:38 | Diagnostic Imaging Report ---
Examination: Single AP view of the chest. COMPARISON: None. INDICATION: Palpitations DISCUSSION: Lines/tubes: None. Lungs: The lungs are well inflated and clear. No pneumonia or pulmonary edema. Pleura: No pleural effusion or pneumothorax. Heart and mediastinum: The heart and the mediastinum are unremarkable. Bones and soft tissues: No acute bony abnormalities. IMPRESSION: 1. No acute cardiopulmonary abnormalities. Signed by: Dr. Martin Pacheco M.D. on 04/08/2019 10:34 AM
[2019-04-08 10:57] LABS: THYROID STIMULATING HORMONE 2.364 uIU/mL (0.350-4.940)
[2019-04-08 11:50] VITALS: BP 111/68
== END 2019-04-08 11:51 | disposition home or self-care (01) ==
LOC: ER 08:12
DX: G43.839 Menstrual migraine, intractable, without status migrainosus (principal); R00.2 Palpitations; E66.01 Morbid (severe) obesity due to excess calories; Z68.41 Body mass index [BMI] 40.0-44.9, adult
CPT/HCPCS: 36415; 70450; 71046; 80053; 81001; 82550; 82553; 83735; 84443; 84484; 84702; 85025; 87086; 93005; 99284; J1200; J1885; J2765; J7030

== ENCOUNTER 2019-05-13 10:59 | Emergency (ER) | payer OTHER ==
[~2019-05-13] VITALS: Ht 170.2 cm; Wt 118.4 kg
[2019-05-13] MEDS ORDERED: KETOROLAC TROMETHAMINE 30 MG/ML VIAL IV ONE (12:30)
--- NOTE | 2019-05-13 13:13 | Diagnostic Imaging Report ---
EXAMINATION: CHEST 2 VIEWS INDICATION: ^chest wall pain ^[id number] ^[id number] COMPARISON: 04/08/2019 FINDINGS: PA and lateral views TUBES and LINES: None. LUNGS: Lungs are well inflated. Lungs are clear. There is no evidence of pneumonia or pulmonary edema. PLEURA: No pleural effusion or pneumothorax. HEART AND MEDIASTINUM: The cardiomediastinal silhouette is unremarkable. BONES AND SOFT TISSUES: No acute osseous lesion. Soft tissues are unremarkable. UPPER ABDOMEN: No free air under the diaphragm. IMPRESSION: No acute thoracic abnormality. Signed by: Dr. Iram Starr M.D. on 05/13/2019 1:10 PM
[2019-05-13] MEDS ORDERED: KETOROLAC TROME10 MG PO (13:42)
== END 2019-05-13 14:12 | disposition home or self-care (01) ==
LOC: ER 10:59
DX: M94.0 Chondrocostal junction syndrome [Tietze] (principal); I10 Essential (primary) hypertension; E66.01 Morbid (severe) obesity due to excess calories
CPT/HCPCS: 71046; 93005; 99284; J1885

== ENCOUNTER 2019-12-06 18:04 | Emergency (ER) | payer BC, OTHER ==
[~2019-12-06] VITALS: Ht 170.2 cm; Wt 118.4 kg
[~2019-12-06 18:04] MED LIST changes: +KETOROLAC TROME10 MG PO
--- OUTSIDE RECORDS SUMMARY | 2019-12-06 18:07 | XMS REPORT ---
Author Author [facility] t Organization [facility] Address [address] [place] [address] Phone Unavailable Care Team Providers Care Bee Breeder Name Role Phone RICKY WREN, Bernie REYNA PCP Melania MONTGOMERY Attphys Unavailable Ashley ALMEIDA Attphys Unavailable LAYNE GOLDEN Attulises Unavailable Payers Payer Name Policy Type Policy Number Effective Date Expiration Date S ource [facility] [id number] 2016 00:00:00 [facility] [id number] 2016 00:00:00 [facility] [id number] 2016 00:00:00 [facility] [id number] 2016 00:00:00 [facility] Problems Condition Name Condition Details Condition Category Status Onset Date Resolution Date Last Treatment Date Treating Clinician Comments Source Abdominal pain Abdominal pain Problem Active [facility] Allergies, Adverse Reactions, Alerts Allergy Name Allergy Type Status Severity Reaction(s) Onset Date Inacti ve Date Treating Clinician Comments Source codeine phosphate DA Active MD 2019-07-27 00:00:00 [facility] hydrocodone bit DA Active MD 2019-07-27 00:00:00 [facility] Cephalexin Monohydrate DA Active MD 2019-07-27 00:00:00 [facility] morphine DA Active SV 2019-07-27 00:00:00 [facility] sulfamethoxazole DA Active SV 2019-07-27 00:00:00 [facility] trimethoprim DA Active SV 2019-07-27 00:00:00 [facility] clarithromycin DA Active SV 2019-07-27 00:00:00 [facility] levofloxacin DA Active MD 2019-07-27 00:00:00 [facility] latex DA Active MO 2019-07-27 00:00:00 [facility] latex DA Active MO 2019-07-03 00:00:00 [facility] codeine phosphate DA Active MD 2019-01-04 00:00:00 [facility] hydrocodone bit DA Active MD 2019-01-04 00:00:00 [facility] Cephalexin Monohydrate DA Active MD 2019-01-04 00:00:00 [facility] morphine DA Active SV 2019-01-04 00:00:00 [facility] sulfamethoxazole DA Active SV 2019-01-04 00:00:00 [facility] trimethoprim DA Active SV 2019-01-04 00:00:00 [facility] clarithromycin DA Active SV 2019-01-04 00:00:00 [facility] levofloxacin DA Active MD 2019-01-04 00:00:00 [facility] Cephalexin Monohydrate Allergy to Substance Active Mild MICHAEL H 2018-10-24 00:00:00 [facility] Codeine Allergy to Substance Active Mild RASH 2018-10-24 00:00:00 [facility] Hydrocodone Allergy to Substance Active Mild RASH 2018-10-24 00:00:00 [facility] Naproxen Propensity to adverse reactions Active Mild NAUSEA 2018-10-24 00:00:00 [facility] Sulfamethoxazole Allergy to Substance Active Mild RASH 2018-10-24 00:00:00 [facility] Clarithromycin Allergy to Substance Active Mild RASH 2018-10-24 00:00 :00 [facility] Levofloxacin Allergy to Substance Active Mild RASH 2018-10-24 00:00:0 0 [facility] codeine phosphate DA Active MD 2017-12-14 00:00:00 [facility] hydrocodone bit DA Active MD 2017-12-14 00:00:00 [facility] Cephalexin Monohydrate DA Active MD 2017-12-14 00:00:00 [facility] morphine DA Active 2017-12-14 00:00:00 [facility] sulfamethoxazole DA Active 2017-12-14 00:00:00 [facility] trimethoprim DA Active 2017-12-14 00:00:00 [facility] clarithromycin DA Active 2017-12-14 00:00:00 [facility] levofloxacin DA Active MD 2017-12-14 00:00:00 [facility] Medications Ordered Medication Name Filled Medication Name Start Date Stop Da te Current Medication? Ordering Clinician Indication Dosage Frequency Signature (SIG) Comments Components Source Ketorolac Tromethamine (Toradol) 10 Mg Tablet Ketorola c Tromethamine (Toradol) 10 Mg Tablet 2019-05-13 00:00:00 Yes Gadiel Graves [employer] 10 Three Times A Day as needed for Mild Pain (1-3) Or Fever>100.8 [facility] Ciprofloxacin Hcl (Cipro) 500 Mg Tablet Ciprofloxacin Hcl (C ipro) 500 Mg Tablet Yes 500 Every [address] [facility] Lisinopril 10 Mg Tablet Lisinopril 10 Mg Tablet Yes 10 Daily [facility] Metronidazole (Flagyl) 250 Mg Tablet Metronidazole (Flagyl) 250 Mg Tablet Yes [facility] Nitrofurantoin Macrocrystal (Macrodantin) 100 Mg Capsu le, 100 Mg Oral Nitrofurantoin Macrocrystal (Macrodantin) 100 Mg Capsule, 100 Mg Oral 2017-03-20 00:00:00 No 100 Twice A Day [facility] Lisinopril 20 Mg Tablet, 20 Mg Oral Lisinopril 20 Mg Tablet, 20 Mg Oral 2016-10-27 00:00:00 No 20 Bedtime [facility] Butalbital/Acetaminophen (Acetaminophn-B utalbital 325-50) 1 Each Tablet, 325 Mg Oral Butalbital/Acetaminophen (Acetaminophn-B utalbital 325-50) 1 Each Tablet, 325 Mg Oral 2016-04-20 00:00:00 No 325 [facility] Albuterol Sulfate (Proair Hfa Inhaler*) 8.5 Gm Inh, Al buterol Sulfate (Proair Hfa Inhaler*) 8.5 Gm Inh, 2015-11-24 00:00:00 No As Needed [facility] Topiramate (Topamax) 100 Mg Tablet, 1 Mouth/Throat To piramate (Topamax) 100 Mg Tablet, 1 Mouth/Throat 2012-06-23 00:00:00 No 1 Nightly [facility] Amoxicillin/Clavulanate K (Augmentin) 875 Mg Tab, 1 Ta b Oral Amoxicillin/Clavulanate K (Augmentin) 875 Mg Tab, 1 Tab Oral 2011-11-30 00:00:00 No 1 Twice A Day [facility] Benzonatate (Tessalon Perle) 100 Mg Capsule, 2 Tab Ora l Benzonatate (Tessalon Perle) 100 Mg Capsule, 2 Tab Oral 2011-11-30 00:00:00 No 2 Tid Prn [facility] Procedures Procedure Date / Time Performed Performing Clinician [facility] e X-ray of chest, two views 2019-05-13 00:00:00 GADIEL GRAVES [facility] X-ray of chest, two views 2019-04-08 00:00:00 ANDREI MONTGOMERY CH I [facility] Computed tomography of brain without radiopaque contrast 201 9-09-22 00:00:00 ANDREI MONTGOMERY [facility] Computed tomography of abdomen and pelvis without then with contrast 2018-10-24 00:00:00 LAYNE ALMEIDA [facility] Encounters Start Date/Time End Date/Time Encounter Type Admission Type [facility] Care Department Encounter ID Source 2019-09-05 18:22:00 2019-09-05 18:22:00 Emergency E [facility] [id number] [facility] 2019-09-05 07:32:00 2019-09-05 07:32:00 Emergency E [id number] [facility] 2019-05-13 10:59:00 2019-05-13 14:12:00 Departed Emergency Room 1 [facility] [id number] [facility] 2019-04-08 08:12:00 2019-04-08 11:51:00 [facility] [id number] 2019-03-10 16:19:00 2019-03-10 18:06:00 Departed Emergency Room 1 [facility] [id number] [facility] 2018-10-24 07:56:00 2018-10-24 13:11:00 Departed Emergency Room 1 LAYNE ALMEIDA [facility] [id number] [facility] Results Test Description Test Time Test Comments Results Result Comments Source - CT MAXIFAC W/O CNT 2019-09-02 17:42:00 Name: FERNANDO SHIRLEY [facility] : 1975 Age/S: 44 / F [address] [facility] Unit #: [id number] Loc: [place] [address] Phys: Alexa Mock MD Acct: [id number] Dis Date: Status: REG ER PHONE #: [phone] Exam Date: 09/02/2019 1729 FAX #: [phone] Reason: headache, right side facial pain EXAMS: CPT CODE: [id number] CT [place]IFAC [place] 66[address] REASON FOR EXAM: headache, right side facial pain EXAM ORDER DATE: 09/02/2019 5:04 PM Ordering: Alexa Mock MD Attending:Alexa Mock MD Location: PROCEDURE: - CT MAXIFAC W/O CNT FINDINGS: CT images of the face were obtained without IV contrast at 2.5 mm thickness. Dose modulation, iterative reconstruction, and/or weight based adjustment of the MA/KV was utilized to reduce the radiation dose to as low as reasonably achievable. The globes are intact. The orbital bethea are unremarkable without evidence of orbital blowout fracture. The nasal bone is unremarkable. The mandibles are within normal limits. No evidence of facial fracture IMPRESSION: Minimal mucosal thickening of the floor of the maxillary sinuses at 1742 Reported and signed by: Adam Hess M.D. CC: Imelda Perez MD; Alexa Mock MD; Cory Barker MD Technologist:Nalini Robles CTDI: DLP: Trnscb Date/Time: 09/02/2019 (1741) t.SDR.VTL Orig Print D/T: S: 09/02/2019 (1745) PAGE 1 Signed Report COMPREHENSIVE METABOLIC PANEL 2019-09-02 17:40:00 Test Item SODIUM (test code = NA) 143 mmol/L 136-145 N POTASSIUM (test code = K) 3.6 mmol/L 3.5-5.1 N CHLORIDE (test code = CL) 105 mmol/L 101-109 N CARBON DIOXIDE (test code = CO2) 26.6 mmol/L 21-32 N ANION GAP (test code = GAP) 15 mmol/L 10-20 N GLUCOSE (test code = GLU) 141 mg/dL 74-106 H BLOOD UREA NITROGEN (test code = BUN) 12 mg/dL 3-21 N CREATININE (test code = CREAT) 0.84 mg/dL 0.55-1.3 N BUN/CREATININE RATIO (test code = BUN/CREA) 14.3 10-20 N TOTAL PROTEIN (test code = PROT) 6.5 g/dL 6.5-8.4 N ALBUMIN (test code = ALB) 3.4 g/dL 3.4-4.8 N GLOBULIN (test code = GLOB) 3.1 G/DL 1-10 N ALBUMIN/GLOBULIN RATIO (test code = A/G) 1.10 RATIO 0.75-1.50 N CALCIUM (test code = CA) 8.5 mg/dL 8.4-10.2 N BILIRUBIN TOTAL (test code = BILT) 0.20 mg/dL 0.0-1.0 N SGOT/AST (test code = AST) 12 U/L 6-32 N SGPT/ALT (test code = ALT) 20 U/L 12-78 N N ote: Change in REFERENCE RANGE due to new reagent method. ALKALINE PHOSPHATASE TOTAL (test code = ALKP) 77 U/L 38-126 N [id number] 17:40:00* Test Item Value Reference Range Interpretation Comments LIPASE (test code = LIP) 250 U/L 128-270 N - CT HEAD/BRAIN W/O [id number] 17:33:00 Name: FERNANDO SHIRLYE [facility] : 1975 Age/S: 44 / F [address] [facility] Unit #: [id number] Loc: [place] [address] Phys: Alexa Mock MD Acct: [id number] Dis Date: Status: REG ER PHONE #: [phone] Exam Date: 09/02/2019 1727 FAX #: [phone] Reason: headache, right sided EXAMS: CPT CODE: [id number] CT HEAD/BRAIN W/O CONT 90750 REASON FOR EXAM: headache, right sided EXAM ORDER DATE: 09/02/2019 5:04 PM Ordering: Alexa Mock MD Attending:Alexa Mock MD Location: PROCEDURE: - CT HEAD/BRAIN W/O CONT COMPARISON: FINDINGS: CT images of the brain were obtained without IV contrast. Dose modulation, iterative reconstruction, and/or weight based adjustment of the MA/KV was utilized to reduce the radiation dose to as low as reasonably achievable. The brain parenchyma is within normal limits. The arredondo-white matter delineation is unremarkable. The ventricles, cisterns, and sulci are unremarkable. There is no evidence of hemorrhage, mass, mass effect. There is no evidence of acute or old infarct. The calvarium is intact. IMPRESSION: Unremarkable brain. at 1733 Reported and signed by: Adam Hess M.D. CC: Imelda Perez MD; Alexa Mock MD; Cory Barker MD Technologist:Nalini Robles CTDI: DLP: Trnscb Date/Time: 09/02/2019 (1733) t.SDR.VTL Orig Print D/T: S: 09/02/2019 (2681) PAGE 1 Signed Report COMPREHENSIVE METABOLIC PANEL 2019-09-02 17:32:00* Test Item Value Reference Range Interpretation Comments SODIUM (test code = NA) 143 mmol/L 136-145 N POTASSIUM (test code = K) 3.6 mmol/L 3.5-5.1 N CHLORIDE (test code = CL) 105 mmol/L 101-109 N CARBON DIOXIDE (test code = CO2) 26.6 mmol/L 21-32 N ANION GAP (test code = GAP) 15 mmol/L 10-20 N GLUCOSE (test code = GLU) 141 mg/dL 74-106 H BLOOD UREA NITROGEN (test code = BUN) 12 mg/dL 3-21 N CREATININE (test code = CREAT) 0.84 mg/dL 0.55-1.3 N BUN/CREATININE RATIO (test code = BUN/CREA) 14.3 10-20 N TOTAL PROTEIN (test code = PROT) gram/dL 6.4-8.2 ALBUMIN (test code = ALB) g/dL 3.4-5.0 GLOBULIN (test code = GLOB) g/dL 2.7-4.2 ALBUMIN/GLOBULIN RATIO (test code = A/G) 0.75-1.50 CALCIUM (test code = CA) 8.5 mg/dL 8.4-10.2 N BILIRUBIN TOTAL (test code = BILT) mg/dL 0.2-1.2 SGOT/AST (test code = AST) IUnit/L 15-37 SGPT/ALT (test code = ALT) U/L 10-69 ALKALINE PHOSPHATASE TOTAL (test code = ALKP) IUnit/L 45-117 [id number] 17:32:00* Test Item Value Reference Range Interpretation Comments LIPASE (test code = LIP) Unit/L 144-286 URINALYSIS [id number] 17:30:00* Test Item Value Reference Range Interpretation Comments UA COLOR (test code = COLU) YELLOW YELLOW UA APPEARANCE (test code = APPU) CLEAR CLEAR UA GLUCOSE DIPSTICK (test code = DGLUU) norm mg/dL NEGATIVE UA BILIRUBIN DIPSTICK (test code = BILU) NEGATIVE mg/dL NEGATIVE UA KETONE DIPSTICK (test code = KETU) neg mg/dL NEGATIVE UA SPECIFIC GRAVITY (test code = SGU) 1.010 1.001-1.035 UA BLOOD DIPSTICK (test code = ANN) neg Salvador/uL NEGATIVE UA PH DIPSTICK (test code = DIANA) 7.0 5.0-8.0 UA PROTEIN DIPSTICK (test code = PROU) neg mg/dL Neg-15 UA UROBILINIOGEN DIPSTICK (test code = URO) norm mg/dL 0.0-0.2 UA NITRITE DIPSTICK (test code = ATUL) NEGATIVE NEGATIVE UA LEUKOCYTE ESTERASE DIPSTICK (test code = LEUU) neg uL NEGA TIVE UA WBC (test code = WBCU) NONE SEEN per HPF 0-5 UA RBC (test code = RBCU) NONE SEEN per HPF 0-5 UA EPITHELIAL CELLS (test code = EPIU) Few (2-5/hpf) per HPF Few UA BACTERIA (test code = BACU) TRACE per HPF NONE Urine Source? Clean CatchUR HCG [id number] 17:30:00* Test Item Value Reference Range Interpretation Comments UR HCG QUAL (test code = HCGQLU) NEGATIVE This HCGQL test is NOT applicable for MALE patients.Check with nurse about probable order error.If Tumor Marker Test needed, nurse should order test "HCGTU"(Test #[id number]) Urine Source? Clean CatchCBC W/AUTO [id number] 17:23:00* Test Item Value Reference Range Interpretation Comments WHITE BLOOD CELL (test code = WBC) 6.6 K/mm3 4.5-12.5 N RED BLOOD CELL (test code = RBC) 4.48 mill/mm3 3.7-5.2 N HEMOGLOBIN (test code = HGB) 13.1 gram/dL 11.5-15.5 N HEMATOCRIT (test code = HCT) 40.4 % 36.0-46.0 N MEAN CELL VOLUME (test code = MCV) 90.2 fL 80-98 N MEAN CELL HGB (test code = MCH) 29.2 picogram 27.0-33.0 N MEAN CELL HGB CONCETRATION (test code = MCHC) 32.4 gram/dL 33.0-36. 0 L RED CELL DISTRIBUTION WIDTH (test code = RDW) 12.1 % 11.6-16. 2 N RED CELL DISTRIBUTION WIDTH SD (test code = RDW-SD) 40.1 fL 37 .0-51.0 N PLATELET COUNT (test code = PLT) 300 K/mm3 150-450 N MEAN PLATELET VOLUME (test code = MPV) 9.7 fL 6.7-11.0 N NEUTROPHIL % (test code = NT%) 56.6 % 39.0-69.0 N LYMPHOCYTE % (test code = LY%) 27.5 % 25.0-55.0 N MONOCYTE % (test code = MO%) 8.5 % 0.0-10.0 N EOSINOPHIL % (test code = EO%) 6.4 % 0.0-5.0 H BASOPHIL % (test code = BA%) 0.8 % 0.0-1.0 N NEUTROPHIL # (test code = NT#) 3.73 K/mm3 1.8-7.7 N LYMPHOCYTE # (test code = LY#) 1.81 K/mm3 1.0-5.0 N MONOCYTE # (test code = MO#) 0.56 K/mm3 0-0.8 N EOSINOPHIL # (test code = EO#) 0.42 K/mm3 0.0-0.5 N BASOPHIL # (test code = BA#) 0.05 K/mm3 0.0-0.2 N MANUAL DIFF REQUIRED (test code = MDIFF) NO - CT ABD PELVIS [id number] 06:00:00 Patient Name: FERNANDO SHIRLEY Unit No: [id number] EXAMS: CPT CODE: [id number] CT ABD PELVIS W/CONT 26509 STUDY: - CT ABD PELVIS W/CONT 07/27/2019 3:33 AM Ordering Physician: Darlene Ruiz MD Patient Name: FERNANDO SHIRLEY MR: [id number] : 1975; Age: 44 years y/o Female Clinical Indication: Postsurgical vaginal pain. Comparison: 04/01/2014 TECHNIQUE: Multiple contiguous postcontrast transaxial CT images were obtained from the diaphragm through the symphysis pubis. Sagittal and coronal reformatted images were prepared. CT imaging performed at this location utilizes radiation dose optimization techniques which include one or more of the following: - Automated exposure control -Adjustment of the mA and/or kV according to patient size -Use of iterative reconstruction technique IV CONTRAST: [address] Radiation Dose DLP: 2474.80 mGy-cm CT ABDOMEN AND PELVIS WITH CONTRAST: VISUALIZED LUNG BASES: No significant abnormality. BOWEL GAS: Nonobstructive bowel gas pattern associated with minimal colonic diver ticulosis. No inflammation is seen to suggest acute diverticulitis. APPENDIX: Normal appendix without inflammatory change. STOMACH: Under distended mildly t hick-walled stomach. PERITONEUM AND MESENTERY: Free Air: No evidence of pne umoperitoneum. Free Fluid: No evidence of significant free fluid, loculated flu id, peripherally enhancing abscess, or hemorrhage. Mesenteric and peritoneal f at: Normal without focal lesion or inflammation. LYMPH NODES: Multiple scat tered subcentimeter central mesenteric and [facility] NAME: FERNANDO SHIRLEY Radiology Department PHYS: Darlene Hernadez MD [address] : 1975 AGE: 44 SEX: F [place], [place] [address] LOC: F.ERS PHONE #: [phone] EXAM DATE: STATUS: REG ER FAX #: [phone] RAD NO: Page 1 Signed Report 1 Pat ient Name: FERNANDO SHIRLEY Unit No: [id number] EXAMS: CPT CODE: [id number] CT ABD PEL VIS W/CONT 28066 <Continued> retroperitoneal lymph nodes without lymphadenopathy or mass. VASCULAR: Abdominal Aorta: Normal caliber abdominal aorta without aneurysm or dissection. IVC: Normal caliber nonenhanced. ABDOMINAL ORGANS: Liver: Mild hepatom egaly measuring 21.1 cm maximum craniocaudal dimension with fairly stable lobul ated low-attenuation lesions with peripheral nodular enhancement consistent wit h hemangiomas measuring 3.2 cm in the left medial hepatic segment and 3.2 cm in the right hepatic dome. Gallbladder: Nonvisualized gallbladder either cont racted or surgically absent. Biliary Tree: Normal without dilatation. K idneys: Normal size kidneys without nephrolithiasis, ureterolithiasis, hydronep hrosis, or suspicious focal lesion. Small 3 mm low-attenuation right renal les ion in the midpole statistically most likely cysts. Adrenal Glands: Normal size and morphology without discrete lesion. Pancreas: Normal size and morph ology without discrete lesion. Spleen: Normal size and morphology without di screte lesion. PELVIC ORGANS: Urinary bladder: Mildly underdistended urinary bladder. Absent uterus with a mildly prominent and thickened vaginal c uff. Normal ovaries and adnexa. Reproductive organs: No organomegaly or ma ss lesions. SOFT TISSUES: No suspicious soft tissue lesion or abnormality. [facility] NAME: FERNANDO SHIRLEY Radiology Department PHYS: Darlene Hernadez MD [address] : 1975 AGE: 44 SEX: [place] [id number] LOC: HARSHAL PHONE #: EXAM DATE: 07/27/2019 STATUS: MATTY ER FAX #: [phone] RAD NO: Page 2 Signed Repor t 1 Patient Name: JODI SHIRLEYOCTAVIO BOLAÑOSEE Unit No: [id number] EXAMS: CPT CODE: [id number] CT ABD PELVIS W/CONT 44287 <Continued> OSSEOUS STRUCTURES: No fracture, dislocation, or suspicious focal osseous lesion. IMPRESSION: Surgically absent uterus associated with a mildly prominent and thickened vaginal cuff. No focal inflammation, hematoma, or fluid collection is otherwise appreciated. Mild hepatomegaly with 2 stable peripherally enhancing lesions consistent with hemangiomas. Nonvisualized gallbladder either surgically absent or contracted. Tiny low-attenuation right renal lesion statistically most likely a cyst. Minimal colonic diverticulosis. SL: TPAINTER-H at 0600 Reported and signed by: Charan Hou MD CC: Darlene Ruiz MD; Cory Barker Technologist: Adriana Yeboah, RT CTDI: DLP: Trnscrbd D/ (0600) [id number] NAME: FERNANDO SHIRLEY CHUCKIE Radiology Department PHYS: Darlene Hernadez MD [address] : 1975 AGE: 44 SEX: F [place] [address] LOC: DavidERS PHONE #: [phone] EXAM DATE: 07/27/2019 STATUS: REG ER FAX #: [phone] RAD NO: Page 3 Signed Report 1 Patient Name: FERNANDO SHIRLEY Unit No: [id number] EXAMS: CPT CODE: [id number] CT ABD PELVIS W/CONT 55784 <Continued> Orig Print D/T: S: 07/27/2019 (0603) [facility] NAME: CASPERFERNANDO NOGUERA Radiology Department PHYS: Darlene Hernadez MD [address] : 1975 AGE: 44 SEX: F [place] [address] LOC: F.ERS PHONE #: [phone] EXAM DATE: 07/27/2019 STATUS: REG ER FAX #: [phone] RAD NO: Page 4 Signed Report 1 UA RFLX MICR CULT IF [id number] 05:07:00* Test Item Value Reference Range Interpretation Comments UA COLOR (test code = COLU) YELLOW YELLOW UA APPEARANCE (test code = APPU) HAZY CLEAR UA GLUCOSE DIPSTICK (test code = DGLUU) NEGATIVE NEGATIVE UA BILIRUBIN DIPSTICK (test code = BILU) NEGATIVE NEGATIVE UA KETONE DIPSTICK (test code = KETU) TRACE NEGATIVE UA SPECIFIC GRAVITY (test code = SGU) >= 1.030 1.001-1.035 N UA BLOOD DIPSTICK (test code = ANN) 2+ NEGATIVE A UA PH DIPSTICK (test code = DIANA) 6.0 5-9 UA PROTEIN DIPSTICK (test code = PROU) TRACE NEGATIVE A UA UROBILINIOGEN DIPSTICK (test code = URO) 0.2 EU/dL <=1.0 UA NITRITE DIPSTICK (test code = ATUL) NEGATIVE NEGATIVE UA LEUKOCYTE ESTERASE DIPSTICK (test code = LEUU) 1+ NEGA TIVE A UA WBC (test code = WBCU) 5-10 #/hpf NONE SEEN A UA RBC (test code = RBCU) 2-5 #/hpf NONE SEEN A UA EPITHELIAL CELLS (test code = EPIU) FEW #/hpf NONE SEEN UA BACTERIA (test code = BACU) FEW #/hpf NONE SEEN A UA CALCIUM OXALATE CRYSTALS (test code = CAOXU) 0-2 #/hpf UA MUCUS (test code = MUCU) 1+ NONE SEEN Indication for culture: Dysuria/FrequencyCOMPREHENSIVE METABOLIC PANEL 2019-07-27 04:25:00* Test Item Value Reference Range Interpretation Comments SODIUM (test code = NA) 141 mEq/L 135-145 N POTASSIUM (test code = K) 4.2 mEq/L 3.5-5.0 N CHLORIDE (test code = CL) 106 mEq/L 100-115 N CARBON DIOXIDE (test code = CO2) 26 mEq/L 22-31 N ANION GAP (test code = GAP) 12.80 10-20 N GLUCOSE (test code = GLU) 120 mg/dL 65-110 H BLOOD UREA NITROGEN (test code = BUN) 19 mg/dL 7-18 H GLOMERULAR FILTRATION RATE (test code = GFR) 68 ml/min >60 N CREATININE (test code = CREAT) 0.9 mg/dL 0.5-1.0 N TOTAL PROTEIN (test code = PROT) 6.8 gm/dL 6.3-8.2 N ALBUMIN (test code = ALB) 3.6 gm/dL 3.4-4.8 N CALCIUM (test code = CA) 8.7 mg/dL 8.4-10.2 N BILIRUBIN TOTAL (test code = BILT) 0.2 mg/dL 0.2-1.0 N SGOT/AST (test code = AST) 11 units/L 15-37 L SGPT/ALT (test code = ALT) 17 units/L 12-78 N ALKALINE PHOSPHATASE TOTAL (test code = ALKP) 70 units/L 46-116 N CBC W/AUTO [id number] 04:13:00* Test Item Value Reference Range Interpretation Comments WHITE BLOOD CELL (test code = WBC) 9.9 K/mm3 6.6-12.1 N RED BLOOD CELL (test code = RBC) 4.41 M/mm3 3.45-5.01 N HEMOGLOBIN (test code = HGB) 13.1 g/dL 10.7-13.9 N HEMATOCRIT (test code = HCT) 41.0 % 32.1-42.1 N MEAN CELL VOLUME (test code = MCV) 93 fL 84.1-94.8 N MEAN CELL HGB (test code = MCH) 29.7 pg 27-35 N MEAN CELL HGB CONCETRATION (test code = MCHC) 32.0 gm/dL 32.2-34. 1 L RED CELL DISTRIBUTION WIDTH (test code = RDW) 12.1 % 12.4-16. 5 L PLATELET COUNT (test code = PLT) 303 K/mm3 133-385 N IMMATURE PLATELET FRACTION (test code = IPF) 0.0 % 0.0-10.8 N MEAN PLATELET VOLUME (test code = MPV) 9.9 fl 9.1-12.7 N NEUTROPHIL % (test code = NT%) 61.8 % 56.5-79.4 N LYMPHOCYTE % (test code = LY%) 25.9 % 14.3-34.3 N MONOCYTE % (test code = MO%) 6.7 % 5.1-10.4 N EOSINOPHIL % (test code = EO%) 4.6 % 0.1-3.0 H BASOPHIL % (test code = BA%) 0.5 % 0.1-1.0 N NEUTROPHIL # (test code = NT#) 6.1 K/mm3 LYMPHOCYTE # (test code = LY#) 2.6 K/mm3 MONOCYTE # (test code = MO#) 0.7 K/mm3 EOSINOPHIL # (test code = EO#) 0.46 K/mm3 BASOPHIL # (test code = BA#) 0.1 K/mm3 RBC MORPHOLOGY REQUIRED (test code = RBCM) NORMAL NORMAL PLATELET MORPHOLOGY REQUIRED (test code = PLTMR) NORMAL SHANTE L UTERUS,OTHER THAN PROLAPSE/VDQ3099-29-14 13:55:00 RUN DATE: 07/17/19 [facility] PAGE 1 RUN TIME: 1528 Specimen Inqui ry RUN USER: INTERFACE PATIENT: FERNANDO SHIRLEY ACCT #: [id number] LOC: [facility] U #: [id number] AGE/SX: 44/F ROOM: [facility] RE07/13/19REG DR: Cory Barker MD : 75 BED: A DIS: 07/14/19 STATUS: DIS Matthew TLOC: SPEC #: [id number] RECD: 07/13/19 STATUS: PRANAY GARSIA #: [id number] REN: 07/13/19- SUBM DR: Cory Barker MD ENTERED: 07/16/19 SP TYPE: UTERUSOTH OT DR: ORDERED: LEVEL V SURGICA CODES: [id number] - UTERUS, NOS PROCEDURES: LEVEL V SURGICA (Incomplete) TISSUES: UTERUS, NOS - UTERUS, CERVIX AND BI LATERAL FALLOPIAN TUBES CLINICAL HISTORY 44 year old, menorrhagia, re ctocele, stress urinary incontinence (kr) FINAL DIAGNOSIS Uterus, hy sterectomy: cervix - chronic cervicitis, mild 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 It consists of an 11.5 x 7 x 7 cm hysterectomy specimen with lindsey ateral fallopian tubes with fimbria attached. The uterus weighs 191 gm. The s erosa is zelaya, smooth, and glistening and contains multiple subserosal and pedu nculated subserosal firm nodules measuring up to 2.2 cm. The cervical exte rnal os measures 1.2 cm. The portio vaginalis measures 2.9 cm. Reading Teacher sections are submitted labeled A1. The endometrium measures 0.1 cm and co ntains submucosal firm nodules measuring up to 0.8 cm. The myometrium measure s up to 2.9 cm thick and contains additional off-white, firm nodules measuring up to 0.4 cm. No degenerative change is noted in CONTINUED ON NEXT PAGE RUN DATE: 07/17/19 [facility] PAGE 2 RUN TIME: 1528 Specimen Inquiry RUN USER: INTERFACE SPEC #: [id number] PATIENT: CASPERFERNANDOOCTAVIO NOGUERA #[id number]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 IMPRESSION: No active disease. at 2042 Reported and signed by: Adam Hess M.D. CC: Imelda Perez MD Technologist: EMILY HARO RT(R),RDMS,CT Trnscrpt Data: 02/22/2019 (2041) SaeL Orig Print D/T: S: 02/22/2019 (2044) PAGE 1 Signed Report HCG SERUM [id number] 23:45:00* Test Item Value Reference Range Interpretation Comments HCG SERUM QUAL (test code = HCGQL) NEGATIVE NEGATIVE This HCGQL test is NOT applicable for MALE patients.Check with nurse about probable order error.If Tumor Marker Test needed, nurse should order test "HCGTU"(Test #550.32508) URINALYSIS [id number] 20:45:00* Test Item Value Reference Range Interpretation Comments UA COLOR (test code = COLU) COLORLESS YELLOW A UA APPEARANCE (test code = APPU) CLEAR CLEAR UA GLUCOSE DIPSTICK (test code = DGLUU) NEGATIVE mg/dL NEGATIVE UA BILIRUBIN DIPSTICK (test code = BILU) NEGATIVE mg/dL NEGATIVE UA KETONE DIPSTICK (test code = KETU) TRACE mg/dL NEGATIVE A UA SPECIFIC GRAVITY (test code = SGU) 1.008 1.001-1.035 UA BLOOD DIPSTICK (test code = ANN) Negative mg/dL NEGATIVE UA PH DIPSTICK (test code = DIANA) 5.5 5.0-8.0 UA PROTEIN DIPSTICK (test code = PROU) NEGATIVE mg/dL NEGATIVE UA UROBILINIOGEN DIPSTICK (test code = URO) Normal mg/dL NEGATIVE UA NITRITE DIPSTICK (test code = ATUL) NEGATIVE NEGATIVE UA LEUKOCYTE ESTERASE W REFLEX (test code = LEUUR) 25 Lan/uL (Trace) Lna/uL NEGATIVE A UA WBC (test code = WBCU) 0-5 per HPF 0-5 UA RBC (test code = RBCU) 0-2 #/HPF 0-5 UA EPITHELIAL CELLS (test code = EPIU) FEW per HPF FEW UA BACTERIA (test code = BACU) NONE SEEN #/HPF NONE Urine Source? Clean CatchUR HCG [id number] 20:45:00* Test Item Value Reference Range Interpretation Comments UR HCG QUAL (test code = HCGQLU) NEGATIVE This HCGQL test is NOT applicable for MALE patients.Check with nurse about probable order error.If Tumor Marker Test needed, nurse should order test "HCGTU"(Test #550.08926) Urine Source? Clean CatchURINALYSIS [id number] 20:44:00* Test Item Value Reference Range Interpretation Comments UA COLOR (test code = COLU) YELLOW UA APPEARANCE (test code = APPU) CLEAR UA BILIRUBIN DIPSTICK (test code = BILU) NEGATIVE UA SPECIFIC GRAVITY (test code = SGU) 1.001-1.035 UA PH DIPSTICK (test code = DIANA) 5.0-8.0 UA UROBILINIOGEN DIPSTICK (test code = URO) mg/dL 0.0-0.2 UA NITRITE DIPSTICK (test code = ATUL) NEGATIVE UA LEUKOCYTE ESTERASE W REFLEX (test code = LEUUR) NEG ATIVE UA WBC (test code = WBCU) per HPF 0-5 UA RBC (test code = RBCU) per HPF 0-5 UA EPITHELIAL CELLS (test code = EPIU) per HPF Few UA BACTERIA (test code = BACU) per HPF NONE Urine Source? Clean CatchUR HCG [id number] 20:44:00* Test Item Value Reference Range Interpretation Comments UR HCG QUAL (test code = HCGQLU) NEGATIVE This HCGQL test is NOT applicable for MALE patients.Check with nurse about probable order error.If Tumor Marker Test needed, nurse should order test "HCGTU"(Test #550.16352) Urine Source? Clean CatchURINALYSIS [id number] 20:44:00* Test Item Value Reference Range Interpretation Comments UA COLOR (test code = COLU) COLORLESS YELLOW A UA APPEARANCE (test code = APPU) CLEAR CLEAR UA GLUCOSE DIPSTICK (test code = DGLUU) NEGATIVE mg/dL NEGATIVE UA BILIRUBIN DIPSTICK (test code = BILU) NEGATIVE mg/dL NEGATIVE UA KETONE DIPSTICK (test code = KETU) TRACE mg/dL NEGATIVE A UA SPECIFIC GRAVITY (test code = SGU) 1.008 1.001-1.035 UA BLOOD DIPSTICK (test code = ANN) Negative mg/dL NEGATIVE UA PH DIPSTICK (test code = DIANA) 5.5 5.0-8.0 UA PROTEIN DIPSTICK (test code = PROU) NEGATIVE mg/dL NEGATIVE UA UROBILINIOGEN DIPSTICK (test code = URO) Normal mg/dL NEGATIVE UA NITRITE DIPSTICK (test code = ATUL) NEGATIVE NEGATIVE UA LEUKOCYTE ESTERASE W REFLEX (test code = LEUUR) 25 Lan/uL (Trace) Lan/uL NEGATIVE A UA WBC (test code = WBCU) per HPF 0-5 UA RBC (test code = RBCU) per HPF 0-5 UA EPITHELIAL CELLS (test code = EPIU) per HPF Few UA BACTERIA (test code = BACU) per HPF NONE Urine Source? Clean CatchUR HCG [id number] 20:44:00* Test Item Value Reference Range Interpretation Comments UR HCG QUAL (test code = HCGQLU) NEGATIVE This HCGQL test is NOT applicable for MALE patients.Check with nurse about probable order error.If Tumor Marker Test needed, nurse should order test "HCGTU"(Test #550.16199) Urine Source? Clean CatchCT ABDOMEN/PELVIS [id number] 11:40:[address] [address] Patient Name: FERNANDO SHIRLEY MR #: [id number] : 1975 Age/Sex: 43/F Req #: [id number] Adm Physician: Ordered by: LAYNE ALMEIDA MD Report #: [id number] Location: ER Room/Bed: Procedure: [id number] CT/CT ABDOMEN/PELVIS WOW Exam Date: 10/24/18 Exam Time: 1 000 REPORT STATUS: Signed EXAM: CT Abdomen and Pelvis without and with contrast INDICATION: Left flank pain query renal stone or diverticulitis. COMPARISON: CT abdomen/pelvis with co ntrast 11/30/2011. TECHNIQUE: Abdomen and pelvis were scanned utilizing a mu ltidetector helical scanner from the lung base to the pubic symphysis before a nd after administration of IV contrast. Coronal and sagittal reformations were obtained. Renal stone and routine protocol was performed. Scan was performed when during portal venous phase. IV CONTRAST: 100 cc Isovue-370 ORAL CONTRAST: None. COMPLICATIONS: None RADIATION DOS E: Total DLP: 1800.3 mGy*cm Dose modulation, iterative reconst ruction, and/or weight based adjustment of the mA/kV was utilized to reduce th e radiation dose to as low as reasonably achievable. FINDINGS: LINES a nd TUBES: None. LOWER THORAX: There is a 5 mm solid nodule in the left lowe r lobe on series 5, image 1. There is a 3 mm right lower lobe nodule on imag e 6. There is a 2 mm hyperdense nodule within the left lower lobe on image 2, which may be partially calcified. HEPATOBILIARY: Similar size of a 2.6 cm hypodense lesion within the hepatic dome and a 2.3 cm segment 4 lesion adjace nt to the falciform ligament, compared to CT on 11/30/2011. The prior study dem onstrated peripheral nodular enhancement of the hepatic dome lesion. The segme nt 4 lesion demonstrates peripheral nodular enhancement on the current study. Diffuse mild fatty liver. No evidence of biliary ductal dilatation. GALLB LADDER: Surgically absent. SPLEEN: No splenomegaly. Calcified splenic granu namrata. PANCREAS: No focal masses or ductal dilatation. ADRENALS: No a drenal nodules KIDNEYS/URETERS: Kidneys enhance symmetrically. No evidence of hydronephrosis or solid mass. Likely punctate 1 mm nonobstructing left mid pole renal stones on series 3, images 80 and 82. No evidence of ureteral stone . GI TRACT: No evidence of wall thickening or distension. Appendix is shante l. PELVIC ORGANS/BLADDER: Unremarkable. LYMPH NODES: No lymphadenopat hy. VESSELS: There are scattered atherosclerotic calcifications in the aort a and branch vessels. PERITONEUM / RETROPERITONEUM: No free air or fluid . BONES AND SOFT TISSUES: Unremarkable. CONCLUSION: Likely punctate 1 mm nonobstructing left midpole renal stones. No CT evidence of diverticul osis or diverticulitis. Similar appearance of two hypodense hepatic lesions to CT on 11/30/2011, likely representing hemangiomas. Fatty liver. B ilateral lower lobe pulmonary nodules, measuring up to 5 mm in the left lower lobe. In a low risk patient, the findings are likely benign and require no fur ther follow-up. If there is clinical risk factor for malignancy such as smokin g, an optional follow-up chest CT may be considered in 12 months. Signed by : Dr. Ashlyn Stanton MD on 10/24/2018 11:57 AM Dictated By: ASHLYN STANTON MD Janell ctronically Signed By: ASHLYN STANTON MD on 10/24/18 1157 Transcribed By: SAVI painter 10/24/18 1157 COPY TO: LAYNE ALMEIDA MD Urine Test 2018-10-24 09:03:00* Test Item Value Reference Range Interpretation Comments Urine Test (test code = 2106-3) NEGATIVE NEGATIVE [facility]LVIS WO [facility] [address] [place] [address] Patient Name: FERNANDO SHIRLEY MR #: [id number] : 1975 Age/Sex: 42/F Req #: [id number] Adm Physician: Ordered by: LAYNE GOLDEN MD Report #: [id number] Location: ER Room/Bed: Procedure: [id number] CT/CT ABDOMEN/PELVIS WO Exam Da te: 04/07/17 Exam Time: 0745 REPORT STATUS: Sig angel PROCEDURE: CT ABDOMEN AND PELVIS WITHOUT CONTRAST TECHNIQUE: The abdomen and pelvis were scanned utilizing a multidetector helical scanner fr om the diaphragm to the lesser trochanter. No IV contrast was administered as per physician request. Coronal and sagittal multiplanar reformations were o btained. COMPARISON: CT abdomen and pelvis 10/27/2016. CT abdomen and pelvi s 05/17/2016. INDICATIONS: RIGHT FLANK PAIN, URINARY FREQUENCY FIND INGS: ABSENCE OF INTRAVENOUS CONTRAST DECREASES SENSITIVITY FOR DETECTION OF FOCAL LESIONS AND VASCULAR PATHOLOGY. LOWER THORAX: Normal. HEPATOB ILIARY: No focal hepatic lesions. No biliary ductal dilatation. Stable hypod ensity in the right lobe of the liver, series 3 image 14. SPLEEN: No splenomeg enzo. PANCREAS: No focal masses or ductal dilatation. ADRENALS: No adrena l nodules. KIDNEYS/URETERS: No hydronephrosis, stones, or solid mass lesions. PELVIC ORGANS/BLADDER: Left ovarian cyst. Normal right ovary. Normal uterus. Normal urinary bladder. PERITONEUM / RETROPERITONEUM: No free air or flu id. LYMPH NODES: No lymphadenopathy. VESSELS: Unremarkable. GI TRACT: No distention or wall thickening. Normal appendix. Moderate amount obtained f eces limits intraluminal evaluation of the colon. BONES AND SOFT TISSUES: Minimal degenerative changes of the lumbar spine. Bilateral flank injection g ranulomas. IMPRESSION: No acute abnormality of the abdomen and pelvi s. Dictated by: Ev Leyva M.D. on 04/07/2017 at 9:10 Electronic ally approved by: Ev Leyva M.D. on 04/07/2017 at 9:10 Dictate d By: EV LEYVA MD 9 Transcribed By: CHEL on 04/07/17909 COPY TO: LAYNE GOLDEN MD
[2019-12-06] MEDS ORDERED: ONDANSETRON HCL INJ 2MG/ML 2ML 2 MG/ML VIAL IV ONE (18:42)
[2019-12-06] MEDS ORDERED: CEFTRIAXONE SOD 1 GM/NS 50 ML 50 ML IV STA (18:42)
[2019-12-06] MEDS ORDERED: SODIUM CHLORIDE 0.9% 1000ML 1,000 ML IV STA (18:42)
[2019-12-06] MEDS ORDERED: KETOROLAC TROMETHAMINE 30 MG/ML VIAL IV ONE (18:42)
--- NOTE | 2019-12-06 18:50 | Emergency Department Note ---
History of Present Illnes History of Present Illness Chief Complaint: General Medicine Complaints History of Present Illness This is a 44 year old female . presented to ed c/o dysuria freq left flank pain left cva tenderness sx x 1 wk seen by pcp last wk placed on macrobid then chg to cipro CRYING HYSTERICALLY IN TRIAGE ON ENTERING ROOM. STATES UTI S/S AND BACK PAIN AND LEFT FLANK. TEMP 100.5 TODAY PER PT. PT STATES ONGOING X ONE WK AND WAS ON MACROBID. PT NOW ON CIPRO SINCE TUESDAY. Historian: Patient Arrival Mode: Car Radiation: abdomen Severity: moderate Onset quality: gradual Duration (how long): week(s) (1 wk) Progression: worsening Context: recent illness, recent surgery, recent immobilization, recent travel, trauma/injury, new medications, hx of DVT/PE, non-compliance w/ medications, other Relieving factors: none Exacerbating factors: none Treatments prior to arrival: other (currently taking cipro) (DENNIS JALLOH NP) Past Medical/Family History Physician Review I have reviewed the patient's past medical and family history. Any updates have been documented here. (DENNIS JALLOH NP) Past Medical History Recent Fever: Yes Clinical Suspicion of Infectio: Yes New/Unexplained Change in Ment: No Past Medical History: Hypertension, UTI's, Migraines Other Medical History: diverticulosis MORBID OBESITY Past Surgical History: Cholecysctectomy, Other Surgery: colonoscopy (DENNIS JALLOH NP) Social History Smoking Cessation: Never Smoker Alcohol Use: None Any Illegal Drug Use: No TB Exposure/Symptoms: No (DENNIS JALLOH NP) Family History Family history of heart diseas: No (DENNIS JALLOH NP) Other Last Tetanus: 06/2011 Any Pre-Existing Lines (PICC,: No (DENNIS JALLOH NP) Review of Systems Review of Systems Constitutional: no symptoms EENTM: no symptoms Cardiovascular: no symptoms Respiratory: no symptoms Gastrointestinal: abdominal pain (left flank pain ) Genitourinary: dysuria, frequency Musculoskeletal: back pain (left cva tenderness) Neurological: no symptoms Psychological: anxiety Endocrine: no symptoms Hematological/Lymphatic: no symptoms Review of other systems All other systems reviewed and negative. (DENNIS JALLOH NP) Physical Exam Related Data Allergies: Coded Allergies: Cephalexin Monohydrate (Verified Allergy, Mild, RASH, 10/24/18) clarithromycin (Verified Allergy, Mild, RASH, 10/24/18) codeine (Verified Allergy, Mild, RASH, 10/24/18) hydrocodone (Verified Allergy, Mild, RASH, 10/24/18) levofloxacin (Verified Allergy, Mild, RASH, 10/24/18) sulfamethoxazole (Verified Allergy, Mild, RASH, 10/24/18) naproxen (Verified Adverse Reaction, Mild, NAUSEA, 10/24/18) Triage Vital Signs Vital Signs Date Time Temp Pulse Resp B/P (MAP) Pulse Ox O2 Delivery O2 Flow Rate FiO2 12/06/19 18:39 98.9 90 18 100 Vital signs reviewed: Yes (DENNIS JALLOH BAILING MACHINE OPERATOR) Physical Exam CONSTITUTIONAL Constitutional: well-developed, well-nourished, obese HENT HENT: normocephalic, atraumatic, oropharynx clear/moist, nose normal HENT L/R: left ext ear normal, right ext ear normal EYES Eyes: PERRL, conjunctivae normal NECK Neck: ROM normal PULMONARY Pulmonary: effort normal, breath sounds normal CARDIOVASCULAR Cardiovascular: regular rhythm, heart sounds normal, capillary refill normal, normal rate GASTROINTESTINAL Abdominal: soft, nontender, bowel sounds normal, left CVA tenderness, other (c/o left flank pain) GENITOURINARY Genitourinary: exam deferred, other (c/o ua freq dysuria ) SKIN Skin: warm, dry MUSCULOSKELETAL Musculoskeletal: ROM normal NEUROLOGICAL Neurological: alert, oriented x 3, no gross motor or sensory deficits PSYCHOLOGICAL Psychological: behavior normal, judgement normal, other (anxious and crying sts gets this way when she is sick) (DENNIS JALLOH BAILING MACHINE OPERATOR) Results Laboratory Lab results reviewed: Yes Laboratory comments Laboratory Tests Test 12/06/19 20:36 12/06/19 19:40 12/06/19 18:40 White Blood Count 9.14 x10e3/uL (4.8-10.8) Red Blood Count 4.87 x10e6/uL (3.6-5.1) Hemoglobin 14.1 g/dL (12.0-16.0) Hematocrit 43.8 % (34.2-44.1) Mean Corpuscular Volume 89.9 fL (81-99) Mean Corpuscular Hemoglobin 29.0 pg (28-32) Mean Corpuscular Hemoglobin Concent 32.2 g/dL (31-35) Red Cell Distribution Width 12.4 % (11.7-14.4) Platelet Count 303 x10e3/uL (140-360) Neutrophils (%) (Auto) 59.6 % (38.7-80.0) Lymphocytes (%) (Auto) 25.8 % (18.0-39.1) Monocytes (%) (Auto) 7.4 % (4.4-11.3) Eosinophils (%) (Auto) 6.1 % (0.0-6.0) Basophils (%) (Auto) 0.7 % (0.0-1.0) Neutrophils # (Auto) 5.4 (2.1-6.9) Lymphocytes # (Auto) 2.4 (1.0-3.2) Monocytes # (Auto) 0.7 (0.2-0.8) Eosinophils # (Auto) 0.6 (0.0-0.4) Basophils # (Auto) 0.1 (0.0-0.1) Absolute Immature Granulocyte (auto 0.04 x10e3/uL (0-0.1) Sodium Level 140 mmol/L (136-145) Potassium Level 4.0 mmol/L (3.5-5.1) Chloride Level 106 mmol/L (98-107) Carbon Dioxide Level 22 mmol/L (22-29) Anion Gap 16.0 mmol/L (8-16) Blood Urea Nitrogen 11 mg/dL (7-26) Creatinine 0.80 mg/dL (0.57-1.11) Estimat Glomerular Filtration Rate > 60 ML/MIN (60-) BUN/Creatinine Ratio 14 (6-25) Glucose Level 103 mg/dL (74-118) Calcium Level 9.5 mg/dL (8.4-10.2) Total Bilirubin 0.4 mg/dL (0.2-1.2) Aspartate Amino Transf (AST/SGOT) 19 IU/L (5-34) Alanine Aminotransferase (ALT/SGPT) 22 IU/L (0-55) Alkaline Phosphatase 77 IU/L (40-150) Total Protein 7.4 g/dL (6.5-8.1) Albumin 4.4 g/dL (3.5-5.0) Globulin 3.0 g/dL (2.3-3.5) Albumin/Globulin Ratio 1.5 (0.8-2.0) Urine Color Yellow (YELLOW) Urine Clarity Sl cloudy (CLEAR) Urine pH 6.5 (5 - 7) Urine Specific [place] 1.015 (1.010-1.025) Urine Protein Negative (NEGATIVE) Urine Glucose (UA) Negative (NEGATIVE) Urine Ketones Negative (NEGATIVE) Urine Blood Negative (NEGATIVE) Urine Nitrite Negative (NEGATIVE) Urine Bilirubin Negative (NEGATIVE) Urine Urobilinogen 0.2 mg/dL (0.2 - 1) Urine Leukocyte Esterase Negative (NEGATIVE) Urine RBC None /HPF (0-5) Urine WBC None /HPF (0-5) Urine Epithelial Cells Few /LPF (NONE) Urine Bacteria Few /HPF (NONE) Urine Test Negative (NEGATIVE) (DENNIS DUQUE DO) Imaging Imaging results reviewed: Yes Impressions [place] [id number] Patient Name: FERNANDO SHIRLEY MR #: [id number] : 1975 Age/Sex: 44/F Req #: [id number] Adm Physician: Ordered by: DENNIS JALLOH BAILING MACHINE OPERATOR Report #: [id number] Location: ER Room/Bed: Procedure: [id number] CT/CT ABDOMEN/PELVIS WO Exam Date: 12/06/19 Exam Time: 2029 REPORT STATUS: Signed EXAM: CT Abdomen and Pelvis WITHOUT contrast INDICATION: UTI, left flank pain, query stone. COMPARISON: Chest radiograph 05-13-2019. CT abdomen/pelvis 10/24/2018. TECHNIQUE: Abdomen and pelvis were scanned utilizing a multidetector helical scanner from the lung base to the pubic symphysis without administration of IV contrast. Absence of intravenous contrast decreases sensitivity for detection of focal lesions and vascular pathology. Coronal and sagittal reformations were obtained. Routine protocol was performed. IV CONTRAST: None. ORAL CONTRAST: Water RADIATION DOSE: Total DLP: 1303 mGy*cm Estimated effective dose: (DLP x 0.015 x size factor) mSv COMPLICATIONS: None FINDINGS: LINES and TUBES: None. LOWER THORAX: Likely 3 mm partially calcified granuloma within the right lower lobe on series 3, image 8, previously more groundglass in appearance on prior CT. HEPATOBILIARY: There is a 2.5 cm right hepatic dome lesion and a 2.4 cm segment 4 lesion, previously characterized as likely hemangiomas on CT from 10/24/2018. No biliary ductal dilation. GALLBLADDER: Status post cholecystectomy. SPLEEN: No splenomegaly. PANCREAS: No focal masses or ductal dilatation. ADRENALS: No adrenal nodules KIDNEYS/URETERS: No evidence of hydronephrosis. Possible punctate 1 mm nonobstructing bilateral renal stones on series 3, image 77. A subcentimeter fat-containing lesion in the right mid pole kidney (image 78), compatible with angiomyolipoma. GI TRACT: No abnormal distention, wall thickening, or evidence of bowel obstruction. Appendix is normal. PELVIC ORGANS/BLADDER: Status post hysterectomy. LYMPH NODES: No lymphadenopathy. VESSELS: There is mild atherosclerotic disease in the aorta and major arterial branches. PERITONEUM / RETROPERITONEUM: No free air or fluid. BONES: No acute osseous abnormality. No suspicious lytic or blastic lesions. Moderate degenerative disc changes at T12-L1. SOFT TISSUES: Unremarkable. IMPRESSION: Possible punctate 1 mm bilateral mid pole nonobstructing renal stones. No evidence of hydronephrosis or ureteral stone. Similar appearance of right hepatic dome and segment 4 hypodense lesions, previously characterized as likely hemangiomas. Signed by: Dr. Ashlyn Stanton MD on 12/06/2019 10:22 PM Dictated By: ASHLYN STANTON MD 21 Transcribed By: SAVI on 12/06/192221 COPY TO: DENNIS JALLOH BAILING MACHINE OPERATOR~ (DENNIS DUQUE DO) Critical Care Time Subsequent provider I assumed direction of critical care for this patient from another provider of my specialty. (DENNIS JALLOH NP) Assessment & Plan Reassessment Reassessment time: 18:49 Reassessment 44y f presented to ed c/o left flank pain dysuria ua freq x 1 wk currently on cipro not getting better called pcp sent to ed for r/o pylo - lab ct abd ordered pt medicated w/ ns rocephin toradol pyridium discussed plan of care w/ Dr Duque care of pt turned over to Dr Duque lab ct pending (DENNIS JALLOH BAILING MACHINE OPERATOR) Reassessment time: 21:28 Reassessment patient to be given IV Zosyn. Patient had received Augmentin prevoiusly (DENNIS DUQUE DO) Assessment & Plan Final Impression: (1) Left flank pain (2) Dysuria Assessment & Plan care of pt turned over to Dr Duque lab ct pending (DENNIS JALLOH BAILING MACHINE OPERATOR) Assessment & Plan CT and lab studies reviewed with patient. Clinical improvement with Toradol IV . Plan to discharge to home and f/u with urology. Rx Augmentin and Motrin 600 mg (DENNIS DUQUE DO) Depart Disposition: HOME, SELF-CARE Last Vital Signs Date Time Temp Pulse Resp B/P (MAP) Pulse Ox O2 Delivery O2 Flow Rate FiO2 12/06/19 18:39 98.9 90 18 100 (DENNIS JALLOH BAILING MACHINE OPERATOR) Home Meds Active Scripts Ketorolac Tromethamine (TORADOL) 10 Mg Tablet, 10 MG PO TID PRN for Mild Pain (1-3) or Fever>100.8 for 5 Days, #15 TAB Prov:AWA FORD BAILING MACHINE OPERATOR 05/13/19 Reported Medications Metronidazole (FLAGYL) 250 Mg Tablet 10/24/18 Ciprofloxacin Hcl (CIPRO) 500 Mg Tablet, 500 MG PO Q12H, #30 TAB 10/24/18 Lisinopril (LISINOPRIL) 10 Mg Tablet, 10 MG PO DAILY, #30 TAB 10/24/18 Medications in the ED Sodium Chloride 1,000 ml @ 0 mls/hr Q0M STAT IV Last administered on 12/06/19at 20:27; Admin Dose 999 MLS/HR; Start 12/06/19 at 18:42; Stop 12/06/19 at 18:45; Status DC Ceftriaxone Sodium 50 ml @ 50 mls/hr ONCE STAT IV ; Start 12/06/19 at 18:42; Stop 12/06/19 at 20:17; Status DC Ondansetron HCl 4 mg ONCE ONCE IV Last administered on 12/06/19at 20:27; Admin Dose 4 MG; Start 12/06/19 at 18:42; Stop 12/06/19 at 19:02; Status DC Ketorolac Tromethamine 30 mg ONCE ONCE IV Last administered on 12/06/19at 20:27; Admin Dose 30 MG; Start 12/06/19 at 18:42; Stop 12/06/19 at 19:02; Status DC Phenazopyridine HCl 200 mg ONCE ONCE PO Last administered on 12/06/19at 20:28; Admin Dose 200 MG; Start 12/06/19 at 19:00; Stop 12/06/19 at 19:02; Status DC Piperacillin Sod/ Tazobactam Sod 50 ml @ 50 mls/hr 0300,0900,1500,2100 IV Last administered on 12/06/19at 20:33; Admin Dose 50 MLS/HR; Start 12/06/19 at 20:23; Stop 12/06/19 at 23:17; Status DC Diazepam 2 mg ONCE ONCE PO Last administered on 12/06/19at 23:10; Admin Dose 2 MG; Start 12/06/19 at 23:15; Stop 12/06/19 at 23:16; Status DC Diazepam 2 mg STK-MED ONCE .ROUTE ; Start 12/06/19 at 23:16; Stop 12/06/19 at 23:11; Status DC (DENNIS DUQUE DO) Physician Attestation Provider Attestation The patient's history, exam findings, diagnostics, and a summary of any interventions or procedures was reviewed in detail with our ANU. Patient seen and evaluated by me I confirm the diagnosis as documented by the ANU and I agree with the care plan articulated in the disposition section with regards to our discussion of the patients case. I made the final disposition of the patient . (DENNIS DUQUE DO) DENNIS JALLOH BAILING MACHINE OPERATOR December 06, 2019 18:50 DENNIS DUQUE DO December 06, 2019 20:33
[2019-12-06] MEDS ORDERED: PHENAZOPYRIDINE HCL 100 MG TAB PO ONE (19:00)
[2019-12-06 20:00] LABS: CLARITY,URINE SL CLOUDY (CLEAR); COLOR,URINE YELLOW (YELLOW)
[2019-12-06 20:01] LABS: BILIRUBIN,URINE NEGATIVE (NEGATIVE); KETONES,URINE NEGATIVE (NEGATIVE); LEUKOCYTE ESTERASE ,URINE NEGATIVE (NEGATIVE); NITRITE,URINE NEGATIVE (NEGATIVE); PROTEIN,URINE DIPSTICK NEGATIVE (NEGATIVE); URINE UROBILINOGEN 0.2 mg/dL (0.2 - 1)
[2019-12-06 20:21] LABS: BACTERIA,URINE FEW /HPF; EPITHELIAL CELLS,URINE FEW /LPF
[2019-12-06] MEDS ORDERED: PIPER-TAZ 3.375 GM 50 ML IV SCH (20:23)
[2019-12-06 20:48] LABS: BASOPHILS # (AUTO) 0.1 (0.0-0.1); BASOPHILS % 0.7 % (0.0-1.0); EOSINOPHILS # (AUTO) 0.6 (0.0-0.4); EOSINOPHILS % 6.1 % (0.0-6.0); HEMATOCRIT 43.8 % (34.2-44.1); HEMOGLOBIN 14.1 g/dL (12.0-16.0); LYMPHOCYTES # (AUTO) 2.4 (1.0-3.2); LYMPHOCYTES % 25.8 % (18.0-39.1); MEAN CORPUSCULAR HGB CONC 32.2 g/dL (31-35); MEAN CORPUSCULAR VOLUME 89.9 fL (81-99); MONOCYTES # (AUTO) 0.7 (0.2-0.8); MONOCYTES % 7.4 % (4.4-11.3); NEUTROPHILS # (AUTO) 5.4 (2.1-6.9); NEUTROPHILS % 59.6 % (38.7-80.0); PLATELET COUNT 303 x10e3/uL (140-360); RED BLOOD COUNT 4.87 x10e6/uL (3.6-5.1); RED CELL DISTRIBUTION WIDTH 12.4 % (11.7-14.4)
[2019-12-06 21:06] LABS: ALANINE AMINOTRANSFERASE 22 IU/L (0-55); ALBUMIN 4.4 g/dL (3.5-5.0); ALBUMIN/GLOBULIN RATIO 1.5 (0.8-2.0); ALKALINE PHOSPHATASE 77 IU/L (40-150); BLOOD UREA NITROGEN 11 mg/dL (7-26); BUN/CREATININE RATIO 14 (6-25); CALCIUM 9.5 mg/dL (8.4-10.2); CARBON DIOXIDE 22 mmol/L (22-29); CHLORIDE 106 mmol/L (98-107); EST GLOMERULAR FILTRATION RATE > 60 ML/MIN (60-); GLUCOSE 103 mg/dL (74-118); SODIUM 140 mmol/L (136-145)
--- NOTE | 2019-12-06 22:26 | Diagnostic Imaging Report ---
EXAM: CT Abdomen and Pelvis WITHOUT contrast INDICATION: UTI, left flank pain, query stone. COMPARISON: Chest radiograph 05-13-2019. CT abdomen/pelvis 10/24/2018. TECHNIQUE: Abdomen and pelvis were scanned utilizing a multidetector helical scanner from the lung base to the pubic symphysis without administration of IV contrast. Absence of intravenous contrast decreases sensitivity for detection of focal lesions and vascular pathology. Coronal and sagittal reformations were obtained. Routine protocol was performed. IV CONTRAST: None. ORAL CONTRAST: Water RADIATION DOSE: Total DLP: 1303 mGy*cm Estimated effective dose: (DLP x 0.015 x size factor) mSv COMPLICATIONS: None FINDINGS: LINES and TUBES: None. LOWER THORAX: Likely 3 mm partially calcified granuloma within the right lower lobe on series 3, image 8, previously more groundglass in appearance on prior CT. HEPATOBILIARY: There is a 2.5 cm right hepatic dome lesion and a 2.4 cm segment 4 lesion, previously characterized as likely hemangiomas on CT from 10/24/2018. No biliary ductal dilation. GALLBLADDER: Status post cholecystectomy. SPLEEN: No splenomegaly. PANCREAS: No focal masses or ductal dilatation. ADRENALS: No adrenal nodules KIDNEYS/URETERS: No evidence of hydronephrosis. Possible punctate 1 mm nonobstructing bilateral renal stones on series 3, image 77. A subcentimeter fat-containing lesion in the right mid pole kidney (image 78), compatible with angiomyolipoma. GI TRACT: No abnormal distention, wall thickening, or evidence of bowel obstruction. Appendix is normal. PELVIC ORGANS/BLADDER: Status post hysterectomy. LYMPH NODES: No lymphadenopathy. VESSELS: There is mild atherosclerotic disease in the aorta and major arterial branches. PERITONEUM / RETROPERITONEUM: No free air or fluid. BONES: No acute osseous abnormality. No suspicious lytic or blastic lesions. Moderate degenerative disc changes at T12-L1. SOFT TISSUES: Unremarkable. IMPRESSION: Possible punctate 1 mm bilateral mid pole nonobstructing renal stones. No evidence of hydronephrosis or ureteral stone. Similar appearance of right hepatic dome and segment 4 hypodense lesions, previously characterized as likely hemangiomas. Signed by: Dr. Valorie Bennett MD on 12/06/2019 10:22 PM
[2019-12-06 23:15] VITALS: BP 130/82
[2019-12-06] MEDS ORDERED: DIAZEPAM 2 MG TAB PO ONE (23:15)
[2019-12-06] MEDS ORDERED: DIAZEPAM 2 MG TAB ONE (23:16)
== END 2019-12-06 23:16 | disposition home or self-care (01) ==
LOC: ER 18:04
DX: R30.0 Dysuria (principal); M54.5 Low back pain; R10.9 Unspecified abdominal pain; I10 Essential (primary) hypertension; E66.01 Morbid (severe) obesity due to excess calories; Z87.19 Personal history of other diseases of the digestive system
CPT/HCPCS: 36415; 74176; 80053; 81001; 81025; 85025; 87086; 93005; 99284; J1885; J2405; J2543; J7030

== ENCOUNTER 2019-12-09 11:06 | Emergency (ER) | payer BC, OTHER ==
[~2019-12-09] VITALS: Ht 170.2 cm; Wt 118.4 kg
--- OUTSIDE RECORDS SUMMARY | 2019-12-09 11:09 | XMS REPORT ---
Author Author [facility] t Organization [facility] t Address [address] [place] [address] Phone Unavailable Care Team Providers Care Toolsmith Name Role Phone RICKY WREN MD Y AXEL PCP DENNIS HERNANDEZ Attphys Unavailable Melania MONTGOMERY Attphys Unavailable Ashley ALMEIDA Attphys Unavailable LAYNE GOLDEN Attuliess Unavailable Payers Payer Name Policy Type Policy Number Effective Date Expiration Date S rubina [facility] [id number] 2016 00:00:00 [facility] [id number] 2016 00:00:00 [facility] [id number] 2016 00:00:00 [facility] [id number] 2016 00:00:00 [facility] Advance Directives Directive Decision Effective Date Termination Date Comments Sour ce Yes N/A [facility] Problems Condition Name Condition Details Condition Category Status Onset Date Resolution Date Last Treatment Date Treating Clinician Comments Source Abdominal pain Abdominal pain Problem Active [facility] Left flank pain Problem [facility] Dysuria Problem [facility] Allergies, Adverse Reactions, Alerts Allergy Name Allergy Type Status Severity Reaction(s) Onset Date Inacti ve Date Treating Clinician Comments Source codeine phosphate [place] Active [place] 2019-07-27 [facility]one [place] 2019-07-27 00:00:00 [facility] Cephalexin Monohydrate DA Active [place] 2019-07-27 00:00:00 [facility] morphine DA Active [place] 2019-07-27 00:00:00 [facility] sulfamethoxazole DA Active [place] 2019-07-27 00:00:00 [facility] trimethoprim DA Active [place] 2019-07-27 00:00:00 [facility] clarithromycin DA Active [place] 2019-07-27 00:00:00 [facility] levofloxacin DA Active [place] 2019-07-27 00:00:00 [facility] latex DA Active [place] 2019-07-27 00:00:00 [facility] latex DA Active [place] 2019-07-03 00:00:00 [facility] codeine phosphate DA Active [place] 2019-01-04 00:00:00 [facility] hydrocodone bit DA Active [place] 2019-01-04 00:00:00 [facility] Cephalexin Monohydrate DA Active [place] 2019-01-04 00:00:00 [facility] morphine DA Active [place] 2019-01-04 00:00:00 [facility] sulfamethoxazole DA Active [place] 2019-01-04 00:00:00 [facility] trimethoprim DA Active [place] 2019-01-04 00:00:00 [facility] clarithromycin DA Active [place] 2019-01-04 00:00:00 [facility] levofloxacin DA Active [place] 2019-01-04 00:00:00 [facility] Cephalexin Monohydrate Allergy to substance Active Mild MICHAEL H 2018-10-24 00:00:00 [facility] Codeine Allergy to substance Active Mild RASH 2018-10-24 00:00:00 [facility] Hydrocodone Allergy to substance Active Mild RASH 2018-10-24 00:00:00 [facility] Naproxen Propensity to adverse reactions Active Mild NAUSEA 2018-10-24 00:00:00 [facility] Sulfamethoxazole Allergy to substance Active Mild RASH 2018-10-24 00:00:00 [facility] Clarithromycin Allergy to substance Active Mild RASH 2018-10-24 00:00 :00 [facility] Levofloxacin Allergy to substance Active Mild RASH 2018-10-24 00:00:0 0 [facility] codeine phosphate DA Active [place] 2017-12-14 00:00:00 [facility] hydrocodone bit DA Active [place] 2017-12-14 00:00:00 [facility] Cephalexin Monohydrate DA Active [place] 2017-12-14 00:00:00 [facility] morphine DA Active [place] 2017-12-14 00:00:00 [facility] sulfamethoxazole DA Active [place] 2017-12-14 00:00:00 [facility] trimethoprim DA Active [place] 2017-12-14 00:00:00 [facility] clarithromycin DA Active [place] 2017-12-14 00:00:00 [facility] levofloxacin DA Active [place] 2017-12-14 00:00:00 [facility] Social History Social Habit Start Date Stop Date Quantity Comments Source Sex Assigned At 1975 00:00:00 1975 00:00:00 Female [facility] Medications Ordered Medication Name Filled Medication Name Start Date Stop Da te Current Medication? Ordering Clinician Indication Dosage Frequency Signature (SIG) Comments Components Source Ketorolac Tromethamine (Toradol) 10 Mg TABLET Ketorola c Tromethamine (Toradol) 10 Mg TABLET 2019-05-13 13:42:00 Yes 10 [facility] Ciprofloxacin Hcl (Cipro) 500 Mg TABLET Ciprofloxacin Hcl (C ipro) 500 Mg TABLET Yes 500 [facility] Lisinopril Lisinopril Yes 10 [facility] Metronidazole (Flagyl) 250 Mg TABLET Metronidazole (Flagyl) 250 Mg TABLET Yes [facility] Nitrofurantoin Macrocrystal (Macrodantin) 100 Mg CAPSU LE Nitrofurantoin Macrocrystal (Macrodantin) 100 Mg CAPSULE 2017-03-20 00:00:00 No 100 [facility] Lisinopril Lisinopril 2016-10-27 00:00:00 No 20 [facility] Butalbital/Acetaminophen (Acetaminophn-Butalbital 325- 50) 1 Each TABLET Butalbital/Acetaminophen (Acetaminophn-Butalbital 325-50) 1 Each TABLET 2016-04-20 00:00:00 No 325 [facility] Albuterol Sulfate (Proair Hfa Inhaler*) 8.5 Gm INH Alb uterol Sulfate (Proair Hfa Inhaler*) 8.5 Gm INH 2015-11-24 00:00:00 No [facility] Topiramate (Topamax) 100 Mg TABLET Topiramate (Topamax) 100 Mg T ABLET 2012-06-23 00:00:00 No 1 [facility] Amoxicillin/Clavulanate K (Augmentin) 875 Mg TAB Amoxi cillin/Clavulanate K (Augmentin) 875 Mg TAB 2011-11-30 00:00:00 No 1 [facility] Benzonatate (Tessalon Perle) 100 Mg CAPSULE Benzonatat e (Tessalon Perle) 100 Mg CAPSULE 2011-11-30 00:00:00 No 2 [facility] Vital Signs Vital Name Observation Time Observation Value Comments Source Weight 2019-12-06 18:39:00 261 [lb_av] [facility] BMI (Body Mass Index) 2019-12-06 18:39:00 40.9 kg/m2 [facility] Procedures Procedure Date / Time Performed Performing Clinician [facility] e CT of abdomen and pelvis without contrast 2019-12-06 00:00:00 [facility] X-ray of chest, two views 2019-05-13 00:00:00 AWA FORD [facility] X-ray of chest, two views 2019-04-08 00:00:00 ANDREI MONTGOMERY CH I [facility] Computed tomography of brain without radiopaque contrast 201 03-26-22 00:00:00 [facility] Plan of Care Planned Activity Planned Date Details Comments Source Future Scheduled Test Bacterial urine culture [code = 630-4] [facility] Goal Patient referral [code = 4148228 ] [facility] Instructions Flank Pain [facility] Encounters Start Date/Time End Date/Time Encounter Type Admission Type [facility] Care Department Encounter ID Source 2019-12-06 18:04:00 2019-12-06 23:16:00 Departed Emergency Room 1 DENNIS HERNANDEZ [facility] [id number] [facility] 2019-09-05 18:22:00 2019-09-05 18:22:00 Emergency E [id number] [facility] 2019-09-05 07:32:00 2019-09-05 07:32:00 Emergency E [id number] 2019-05-13 10:59:00 2019-05-13 14:12:00 Departed Emergency Room 1 [facility] [id number] [facility] 2019-04-08 08:12:00 2019-04-08 11:51:00 Departed Emergency Room 1 [facility] [id number] [facility] 2019-03-10 16:19:00 2019-03-10 18:06:00 Departed Emergency Room 1 ANDREI MONTGOMERY [facility] [id number] [facility] 2018-10-24 07:56:00 2018-10-24 13:11:00 Departed Emergency Room 1 LAYNE ALMEIDA [facility] [id number] [facility] Results Test Description Test Time Test Comments Results Result Comments Source CT ABDOMEN/PELVIS WO 2019-12-06 22:11:00 [facility] [address] [address] Patient Name: FERNANDO SHIRLEY MR #: [id number] : 1975 Age/Sex: 44/F Req #: [id number] Adm Physician: Ordered by: DENNIS JALLOH MARINE ARCHITECT Report #: [id number] Location: ER Room/Bed: Procedure: [id number] CT/CT ABDOMEN/PELVIS WO Exam Date: 12/06/19 Exam Time: 2029 REPORT STATUS: Signed EXAM: CT Abdomen and Pelvis WITHOUT contrast INDICATION: UTI, left flank pain, query stone. COMPARISON: Chest radiograph 05-13-2019. CT abdomen/pelvis 10/24/2018. TECHNIQUE: Abdomen and pelvis were scanned utilizing a multidetector helical scanner from the lung base to the pubic symphysis without administration of IV contrast. Absence of intravenous contrast decreases sensitivity for detection of focal lesions and vascular pathology. Coronal and sagittal reformations were obtained. Routine protocol was performed. IV CONTRAST: None. ORAL CONTRAST: Water RADIATION DOSE: Total DLP: 1303 mGy*cm Estimated effective dose: (DLP x 0.015 x size factor) mSv COMPLICATIONS: None FINDINGS: LINES and TUBES: None. LOWER THORAX: Likely 3 mm partially calcified granuloma within the right lower lobe on series 3, image 8, previously more groundglass in appearance on prior CT. HEPATOBILIARY: There is a 2.5 cm right hepatic dome lesion and a 2.4 cm segment 4 lesion, previously characterized as likely hemangiomas on CT from 10/24/2018. No biliary ductal dilation. GALLBLADDER: Status post cholecystectomy. SPLEEN: No splenomegaly. PANCREAS: No focal masses or ductal dilatation. ADRENALS: No adrenal nodules KIDNEYS/URETERS: No evidence of hydronephrosis. Possible punctate 1 mm nonobstructing bilateral renal stones on series 3, image 77. A subcentimeter fat-containing lesion in the right mid pole kidney (image 78), compatible with angiomyolipoma. GI TRACT: No abnormal distention, wall thickening, or evidence of bowel obstruction. Appendix is normal. PELVIC ORGANS/BLADDER: Status post hysterectomy. LYMPH NODES: No lymphadenopathy. VESSELS: There is mild atherosclerotic disease in the aorta and major arterial branches. PERITONEUM / RETROPERITONEUM: No free air or fluid. BONES: No acute osseous abnormality. No suspicious lytic or blastic lesions. Moderate degenerative disc changes at T12-L1. SOFT TISSUES: Unremarkable. IMPRESSION: Possible punctate 1 mm bilateral mid pole nonobstructing renal stones. No evidence of hydronephrosis or ureteral stone. Similar appearance of right hepatic dome and segment 4 hypodense lesions, previously characterized as likely hemangiomas. Signed by: Dr. Ashlyn Stanton MD on 12/06/2019 10:22 PM Dictated By: ASHLYN STANTON MD 21 Transcribed By: SAVI on 12/06/192221 COPY TO: DENNIS JALLOH NP Blood leukocytes automated count (number/volume) 2019-12-06 20:36:00 Test Item White Blood Count (test code = 6690-2) 9.14 [facility] count (number/volume)2019-12-06 20:36:00* Test Item Value Reference Range Interpretation Comments Red Blood Count (test code = 789-8) 4.87 [facility] hemoglobin measurement (moles/volume)2019-12-06 20:36:00* Test Item Value Reference Range Interpretation Comments Hemoglobin (test code = 98318-8) 14.1 [facility] CenterAutomated blood hematocrit (volume fraction)2019-12-06 20:36:00* Test Item Value Reference Range Interpretation Comments Hematocrit (test code = 4544-3) 43.8 [facility] CenterAutomated erythrocyte mean corpuscular swaura8236-19-78 20:36:00* Test Item Value Reference Range Interpretation Comments Mean Corpuscular Volume (test code = 787-2) 89.9 [facility] CenterAutomated erythrocyte mean corpuscular hemoglobin (mass per erythrocyte)2019-12-06 20:36:00* Test Item Value Reference Range Interpretation Comments Mean Corpuscular Hemoglobin (test code = 785-6) 29.0 [facility] CenterAutunc health pardeeed erythrocyte mean corpuscular hemoglobin concentration measurement (mass/volume)2019-12-06 20:36:00* Test Item Value Reference Range Interpretation Comments Mean Corpuscular Hemoglobin Concent (test code = 786-4) 32.2 [facility] CenterRDW DnoOl-Xug7222-55-21 20:36:00* Test Item Value Reference Range Interpretation Comments Red Cell Distribution Width (test code = 49898-1) 12.4 [facility] CenterAutomated blood platelet count (count/volume)2019-12-06 20:36:00* Test Item Value Reference Range Interpretation Comments Platelet Count (test code = 777-3) 303 [facility] Centered blood segmented neutrophil count as percentage of total evfoxvmgvb0129-68-70 20:36:00* Test Item Value Reference Range Interpretation Comments Neutrophils (%) (Auto) (test code = 80018-1) 59.6 [facility] CenterAutomated blood lymphocyte count as percentage ot total mtapxvwmaj2236-13-41 20:36:00* Test Item Value Reference Range Interpretation Comments Lymphocytes (%) (Auto) (test code = 736-9) 25.8 [facility] CenterAutunc health pardeeed blood monocyte count as percentage of total fuadevmmfj9317-20-34 20:36:00* Test Item Value Reference Range Interpretation Comments Monocytes (%) (Auto) (test code = 5905-5) 7.4 [facility] CenterAutomated blood eosinophil count as percentage of total xcqpgufgom9346-27-57 20:36:00* Test Item Value Reference Range Interpretation Comments Eosinophils (%) (Auto) (test code = 713-8) 6.1 [facility] CenterAutomated blood basophil count as percentage of total drmuwytojt2065-01-77 20:36:00* Test Item Value Reference Range Interpretation Comments Basophils (%) (Auto) (test code = 706-2) 0.7 [facility] CenterFluoroscopic procedure less than one hour qngbzvly1491-92-24 20:36:00* Test Item Value Reference Range Interpretation Comments IM GRANULOCYTES % (test code = IM GRANULOCYTES %) 0.4 [facility] CenterAutomated blood neutrophil count 2019-12-06 20:36:00* Test Item Value Reference Range Interpretation Comments Neutrophils # (Auto) (test code = 751-8) 5.4 [facility] CenterBlood lymphocytes count (number/volume) 2019-12-06 20:36:00* Test Item Value Reference Range Interpretation Comments Lymphocytes # (Auto) (test code = 25486-4) 2.4 [facility] monocytes automated count (number/volume)2019-12-06 20:36:00* Test Item Value Reference Range Interpretation Comments Monocytes # (Auto) (test code = 742-7) 0.7 [facility] CenterAutomated blood eosinophil count 2019-12-06 20:36:00* Test Item Value Reference Range Interpretation Comments Eosinophils # (Auto) (test code = 711-2) 0.6 [facility] CenterAutomated blood basophil count (count/volume)2019-12-06 20:36:00* Test Item Value Reference Range Interpretation Comments Basophils # (Auto) (test code = 704-7) 0.1 [facility] CenterFluoroscopic procedure less than one hour bewziewp3854-25-67 20:36:00* Test Item Value Reference Range Interpretation Comments Absolute Immature Granulocyte (auto (harley t code = Absolute Immature Granulocyte (auto) 0.04 [facility] sodium measurement (moles/volume)2019-12-06 20:36:00* Test Item Value Reference Range Interpretation Comments Sodium Level (test code = 2951-2) 140 [facility] or plasma potassium measurement (moles/volume)2019-12-06 20:36:00* Test Item Value Reference Range Interpretation Comments Potassium Level (test code = 2823-3) 4.0 [facility] or plasma chloride measurement (moles/volume)2019-12-06 20:36:00* Test Item Value Reference Range Interpretation Comments Chloride Level (test code = 2075-0) 106 [facility] or plasma carbon dioxide, total measurement (moles/volume)2019-12-06 20:36:00* Test Item Value Reference Range Interpretation Comments Carbon Dioxide Level (test code = 2028-9) 22 [facility] or plasma anion sil7676-82-37 20:36:00* Test Item Value Reference Range Interpretation Comments Anion Gap (test code = 00101-6) 16.0 [facility] or plasma urea nitrogen measurement (mass/volume)2019-12-06 20:36:00* Test Item Value Reference Range Interpretation Comments Blood Urea Nitrogen (test code = 3094-0) 11 [facility] or plasma creatinine measurement (mass/volume)2019-12-06 20:36:00* Test Item Value Reference Range Interpretation Comments Creatinine (test code = 2160-0) 0.80 [facility] or plasma urea nitrogen/creatinine mass iocqg3703-41-68 20:36:00* Test Item Value Reference Range Interpretation Comments BUN/Creatinine Ratio (test code = 3097-3) 14 [facility] CenterEstimated glomerular filtration rate (GFR) dxouoknzgokvb1839-62-39 20:36:00* Test Item Value Reference Range Interpretation Comments Estimat Glomerular Filtration Rate (test code = 989153171) > 60 [facility] CenterGlucose ykeahxmwigp0300-10-81 20:36:00* Test Item Value Reference Range Interpretation Comments Glucose Level (test code = SCE4253) 103 [facility] or plasma calcium measurement (mass/volume)2019-12-06 20:36:00* Test Item Value Reference Range Interpretation Comments Calcium Level (test code = 66664-5) 9.5 [facility] or plasma total bilirubin measurement (mass/volume)2019-12-06 20:36:00* Test Item Value Reference Range Interpretation Comments Total Bilirubin (test code = 1975-2) 0.4 [facility] CenterFluoroscopic procedure less than one hour qmtrtlbs5493-36-20 20:36:00* Test Item Value Reference Range Interpretation Comments Aspartate Amino Transf (AST/SGOT) (test code = Aspartate Amino Transf (AST/SGOT)) 19 [facility] or plasma alanine aminotransferase measurement (enzymatic activity/volume)2019-12-06 20:36:00* Test Item Value Reference Range Interpretation Comments Alanine Aminotransferase (ALT/SGPT) (test code = 1742-6) 22 [facility] or plasma protein measurement (mass/volume)2019-12-06 20:36:00* Test Item Value Reference Range Interpretation Comments Total Protein (test code = 2885-2) 7.4 [facility] or plasma albumin measurement (mass/volume)2019-12-06 20:36:00* Test Item Value Reference Range Interpretation Comments Albumin (test code = 1751-7) 4.4 [facility] CenterPlasma globulin measurement (mass/volume) 2019-12-06 20:36:00* Test Item Value Reference Range Interpretation Comments Globulin (test code = 61558-7) 3.0 [facility] or plasma albumin/globulin mass nnuhl5004-61-44 20:36:00* Test Item Value Reference Range Interpretation Comments Albumin/Globulin Ratio (test code = 1759-0) 1.5 [facility] or plasma alkaline phosphatase measurement (enzymatic activity/volume)2019-12-06 20:36:00* Test Item Value Reference Range Interpretation Comments Alkaline Phosphatase (test code = 6768-6) 77 [facility] CenterUrine color ecakuxctmiwdf7581-13-22 19:40:00* Test Item Value Reference Range Interpretation Comments Urine Color (test code = 5778-6) YELLOW [facility] CenterUrine uehymtl3134-34-29 19:40:00* Test Item Value Reference Range Interpretation Comments Urine Clarity (test code = 22223-3) SL CLOUDY [facility]andpecific gravity of Urine by Test strip 2019-12-06 19:40:00* Test Item Value Reference Range Interpretation Comments Urine Specific [place] (test code = 5811-5) 1.015 [facility] CenterU[facility] pH measurement by automated test kfquy2751-72-49 19:40:00* Test Item Value Reference Range Interpretation Comments Urine pH (test code = 39258-2) 6.5 [facility] CenterUrine leukocyte esterase detection by albfvxwq0073-10-18 19:40:00* Test Item Value Reference Range Interpretation Comments Urine Leukocyte Esterase (test code = 5799-2) NEGATIVE [facility] CenterUrine nitrite mrwuokzfq0455-27-39 19:40:00* Test Item Value Reference Range Interpretation Comments Urine Nitrite (test code = 20884-5) NEGATIVE [facility] CenterU[facility] protein measurement by test strip (mass/volume)2019-12-06 19:40:00* Test Item Value Reference Range Interpretation Comments Urine Protein (test code = 5804-0) NEGATIVE [facility] CenterUrine glucose rjpzopxzm2419-16-95 19:40:00* Test Item Value Reference Range Interpretation Comments Urine Glucose (UA) (test code = 2349-9) NEGATIVE [facility] CenterUrine ketones detection by automated test wcwrk4387-00-96 19:40:00* Test Item Value Reference Range Interpretation Comments Urine Ketones (test code = 74787-0) NEGATIVE [facility] CenterUrine urobilinogen measurement by test strip (mass/volume)2019-12-06 19:40:00* Test Item Value Reference Range Interpretation Comments Urine Urobilinogen (test code = 13444-2) 0.2 [facility] CenterU[facility] total bilirubin measurement (mass/volume)2019-12-06 19:40:00* Test Item Value Reference Range Interpretation Comments Urine Bilirubin (test code = 1978-6) NEGATIVE [facility] CenterUrine erythrocytes kmxnbmdye9451-04-60 19:40:00* Test Item Value Reference Range Interpretation Comments Urine Blood (test code = 22186-2) NEGATIVE [facility] CenterAutomated urine sediment leukocyte count by microscopy (number/high power field)2019-12-06 19:40:00* Test Item Value Reference Range Interpretation Comments Urine WBC (test code = 5821-4) NONE [facility] CenterErythrocytes detection in urine sediment by light cilnulirwm6528-55-33 19:40:00* Test Item Value Reference Range Interpretation Comments Urine RBC (test code = 02776-8) NONE [facility] CenterBacteria detection in urine sediment by light ntutbnxujx7368-42-15 19:40:00* Test Item Value Reference Range Interpretation Comments Urine Bacteria (test code = 41690-2) FEW [facility] CenterEpithelial cells detection in urine sediment by light owppmzausi5424-43-71 19:40:00* Test Item Value Reference Range Interpretation Comments Urine Epithelial Cells (test code = 87113-5) FEW [facility] CenterUrine human chorionic gonadotropin (hCG) tgmwgbpih8800-25-48 18:40:00* Test Item Value Reference Range Interpretation Comments Urine Test (test code = 2106-3) NEGATIVE [facility]- CT MAXIFAC W/O [id number] 17:42:00 Name: FERNANDO SHIRLEY [facility] : 1975 Age/S: 44 / F [address] [facility] Unit #: [id number] Loc: [place] [address] Phys: Ashely Mock MD Acct: [id number] Di s Date: Status: REG ER PHONE #: [phone] Exam Date: 09/02/2019 1729 FAX #: Reason: headache, right side facial pain EXAMS: CPT CODE: [id number] [place]IFAC [place] [address] REASON FOR EXAM: headache, right side facial pain EXAM ORDER DATE: 09/02/2019 5:04 PM Ordering: Alexa Mock MD Attending:Alexa Mock MD Loca tion:VL PROCEDURE: - CT MAXIFAC W/O CNT FINDINGS: C T images of the face were obtained without IV contrast at 2.5 mm thickness . Dose modulation, iterative reconstruction, and/or weight based adjustme nt of the MA/KV was utilized to reduce the radiation dose to as low as cony sonably achievable. The globes are intact. The orbital bethea are unremarkable without evidence of orbital blowout fracture. The isrrael al bone is unremarkable. The mandibles are within normal limits. No evid ence of facial fracture IMPRESSION: Minimal mucosal thic kening of the floor of the maxillary sinuses at 1742 Reported an d signed by: Adam Hess M.D. CC: Imelda Perez MD; Ashely Mock MD; Cory Barker MD Technologist:Nalini Robles CTDI: DLP: Trnscb Date/Time: 09/02/2019 (1741) [email or web address] Orig Print D/T: S: 09/02/2019 (1746) PAGE 1 Signed Report COMPREHENSIVE METABOLIC [id number] 17:40:00* Test Item Value Reference Range Interpretation [...] code = ALKP) 77 U/L 38-126 N [id number] 17:40:00* Test Item Value Reference Range Interpretation Comments LIPASE (test code = LIP) 250 U/L 128-270 N - CT HEAD/BRAIN W/O [id number] 17:33:00 Name: FERNANDO SHIRLEY [facility] : 1975 Age/S: 44 / F [address] [facility] Unit #: [id number] Loc: [place] [address] Phys: Alexa Mock MD Acct: [id number] Dis Date: Status: REG ER PHONE #: [phone] Exam Date: 09/02/2019 1727 FAX #: [phone] Reason: headache, right sided EXAMS: CPT CODE: [id number] CT HEAD/BRAIN W/O CONT [id number] REASON FOR EXAM: headache, right sided EXAM [...] Technologist:Nalini Robles CTDI: DLP: Trnscb Date/Time: 09/02/2019 (4365) SaeL Orig Print D/T: S: 09/02/2019 (5496) PAGE 1 Signed Report COMPREHENSIVE METABOLIC PANEL [...] TOTAL (test code = ALKP) IUnit/L 45-117 [id number] 17:32:00* Test Item Value Reference Range Interpretation Comments LIPASE (test code = LIP) Unit/L 144-286 URINALYSIS [id number] 17:30:00* Test Item Value Reference Range Interpretation [...] HPF NONE Urine Source? Clean CatchUR HCG [id number] 17:30:00* Test Item Value Reference Range Interpretation Comments UR HCG QUAL (test code = HCGQLU) NEGATIVE This HCGQL test is NOT applicable for MALE patients.Check with nurse about probable order error.If Tumor Marker Test needed, nurse should order test "HCGTU"(Test #550.07271) Urine Source? Clean CatchCBC W/AUTO [id number] 17:23:00* Test Item Value Reference Range Interpretation [...] = MDIFF) NO - CT ABD PELVIS W/[id number] 06:00:00 Patient Name: FERNANDO SHIRLEY Unit No: [id number] EXAMS: CPT CODE: [id number] CT ABD PELVIS W/CONT 91390 STUDY: - CT ABD PELVIS W/CONT 07/27/2019 3:33 AM Ordering Physician: Darlene Ruiz MD Patient Name: FERNANDO SHIRLEY MR: [id number] : 1975; Age: 44 years y/o Female [...] scat tered subcentimeter central mesenteric and [facility] NAME: FERNANDO SHIRLEY Radiology Department PHYS: Darlene Hernadez MD [address] : 1975 AGE: 44 SEX: F [place], [place] [address] LOC: F.ERS PHONE #: [phone] EXAM DATE: STATUS: REG ER FAX #: [phone] RAD NO: Page 1 Signed Report 1 Pat ient Name: FERNANDO SHIRLEY Unit No: [id number] EXAMS: CPT CODE: [id number] CT ABD PEL VIS W/CONT 36178 <Continued> retroperitoneal lymph nodes without lymphadenopathy or [...] suspicious soft tissue lesion or abnormality. [facility] NAME: FERNANDO SHIRLEY Radiology Department PHYS: Darlene Hernadez MD [address] : 1975 AGE: 44 SEX: [place], [place] [address] LOC: HARSHAL PHONE #: EXAM DATE: 07/27/2019 STATUS: REG ER FAX #: RAD NO: Page 2 Signed Repor t 1 Patient Name: FERNANDO SHIRLEY Unit No: [id number] EXAMS: CPT CODE: [id number] CT ABD PELVIS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
[2019-12-09] MEDS ORDERED: SODIUM CHLORIDE 0.9% 1000ML 1,000 ML IV STA (11:40)
[2019-12-09] MEDS ORDERED: KETOROLAC TROMETHAMINE 30 MG/ML VIAL IV STA (11:40)
[2019-12-09] MEDS ORDERED: CEFTRIAXONE SOD 1 GM/NS 50 ML 50 ML IV ONE (11:45)
[2019-12-09 12:19] LABS: BASOPHILS # (AUTO) 0.1 (0.0-0.1); BASOPHILS % 0.9 % (0.0-1.0); EOSINOPHILS # (AUTO) 0.5 (0.0-0.4); EOSINOPHILS % 7.2 % (0.0-6.0); HEMATOCRIT 41.9 % (34.2-44.1); HEMOGLOBIN 13.6 g/dL (12.0-16.0); LYMPHOCYTES # (AUTO) 1.6 (1.0-3.2); LYMPHOCYTES % 22.6 % (18.0-39.1); MEAN CORPUSCULAR HEMOGLOBIN 29.3 pg (28-32); MEAN CORPUSCULAR HGB CONC 32.5 g/dL (31-35); MEAN CORPUSCULAR VOLUME 90.3 fL (81-99); MONOCYTES # (AUTO) 0.5 (0.2-0.8); MONOCYTES % 7.8 % (4.4-11.3); NEUTROPHILS # (AUTO) 4.2 (2.1-6.9); NEUTROPHILS % 61.2 % (38.7-80.0); PLATELET COUNT 279 x10e3/uL (140-360); RED BLOOD COUNT 4.64 x10e6/uL (3.6-5.1); RED CELL DISTRIBUTION WIDTH 12.6 % (11.7-14.4)
[2019-12-09 12:53] LABS: CLARITY,URINE CLEAR (CLEAR); COLOR,URINE YELLOW (YELLOW); LEUKOCYTE ESTERASE ,URINE NEGATIVE (NEGATIVE); NITRITE,URINE NEGATIVE (NEGATIVE); PROTEIN,URINE DIPSTICK NEGATIVE (NEGATIVE)
[2019-12-09 12:54] LABS: BILIRUBIN,URINE NEGATIVE (NEGATIVE); KETONES,URINE NEGATIVE (NEGATIVE); URINE UROBILINOGEN 0.2 mg/dL (0.2 - 1)
[2019-12-09 13:03] LABS: ALANINE AMINOTRANSFERASE 19 IU/L (0-55); ALBUMIN 4.1 g/dL (3.5-5.0); ALBUMIN/GLOBULIN RATIO 1.4 (0.8-2.0); ALKALINE PHOSPHATASE 70 IU/L (40-150); ANION GAP 13.7 mmol/L (8-16); CALCIUM 9.4 mg/dL (8.4-10.2); CARBON DIOXIDE 23 mmol/L (22-29); CHLORIDE 108 mmol/L (98-107); CREATININE, SERUM 0.82 mg/dL (0.57-1.11); EST GLOMERULAR FILTRATION RATE > 60 ML/MIN (60-); GLUCOSE 99 mg/dL (74-118); POTASSIUM 3.7 mmol/L (3.5-5.1); SODIUM 141 mmol/L (136-145)
[2019-12-09 13:08] LABS: BACTERIA,URINE RARE /HPF; EPITHELIAL CELLS,URINE MANY /LPF; RBC,URINE 0-5 /HPF (0-5); WBC,URINE (MAN) 0-5 /HPF (0-5)
[2019-12-09 13:26] LABS: BLOOD UREA NITROGEN 10 mg/dL (7-26); BUN/CREATININE RATIO 12 (6-25)
--- NOTE | 2019-12-09 13:36 | Emergency Department Note ---
History of Present Illnes History of Present Illness Chief Complaint: Genitourinary History of Present Illness This is a 44 year old female arrived to the ED with continued complaints of urinary frequency- her dysuria has gone away. Pt completed her course of Cipro based off her last urine culture. Chief Complaint Comment 44 y/o female presents to ED with c/o "my UTI is not going away", pt is currently taking 2 Antibiotics and still complains of burning, hesitancy, and frequency. Urine specimen collected. Historian: Patient Arrival Mode: Car Onset (how long ago): week(s) Severity: mild Onset quality: gradual Duration (how long): week(s) Timing of current episode: constant Progression: unchanged Past Medical/Family History Physician Review I have reviewed the patient's past medical and family history. Any updates have been documented here. Past Medical History Recent Fever: No Clinical Suspicion of Infectio: Yes New/Unexplained Change in Ment: No Past Medical History: Hypertension, UTI's, Migraines Other Medical History: diverticulosis MORBID OBESITY Past Surgical History: Cholecysctectomy, Other Surgery: colonoscopy Social History Smoking Cessation: Never Smoker Counseling Performed: No Alcohol Use: None Any Illegal Drug Use: No TB Exposure/Symptoms: No Physically hurt or threatened: No Other Last Tetanus: 06/2011 Any Pre-Existing Lines (PICC,: No Is patient up to date on immun: No Last Flu: utd Last Pneumovax: ood Review of Systems Review of Systems Constitutional: no symptoms EENTM: no symptoms Cardiovascular: no symptoms Respiratory: no symptoms Gastrointestinal: no symptoms Genitourinary: frequency Musculoskeletal: no symptoms Neurological: no symptoms Psychological: no symptoms Endocrine: no symptoms Hematological/Lymphatic: no symptoms Review of other systems All other systems reviewed and negative. Physical Exam Related Data Allergies: Coded Allergies: Cephalexin Monohydrate (Verified Allergy, Mild, RASH, 10/24/18) clarithromycin (Verified Allergy, Mild, RASH, 10/24/18) codeine (Verified Allergy, Mild, RASH, 10/24/18) hydrocodone (Verified Allergy, Mild, RASH, 10/24/18) levofloxacin (Verified Allergy, Mild, RASH, 10/24/18) sulfamethoxazole (Verified Allergy, Mild, RASH, 10/24/18) naproxen (Verified Adverse Reaction, Mild, NAUSEA, 10/24/18) Triage Vital Signs Vital Signs Date Time Temp Pulse Resp B/P (MAP) Pulse Ox O2 Delivery O2 Flow Rate FiO2 12/09/19 11:22 98.6 67 18 134/93 100 Vital signs reviewed: Yes Physical Exam CONSTITUTIONAL Constitutional: well-developed, well-nourished HENT HENT: normocephalic, atraumatic, oropharynx clear/moist, nose normal HENT L/R: left ext ear normal, right ext ear normal EYES Eyes: PERRL, conjunctivae normal NECK Neck: ROM normal PULMONARY Pulmonary: effort normal, breath sounds normal CARDIOVASCULAR Cardiovascular: regular rhythm, heart sounds normal, capillary refill normal, normal rate GASTROINTESTINAL Abdominal: soft, nontender, bowel sounds normal GENITOURINARY Genitourinary: exam deferred SKIN Skin: warm, dry MUSCULOSKELETAL Musculoskeletal: ROM normal NEUROLOGICAL Neurological: alert, oriented x 3, no gross motor or sensory deficits PSYCHOLOGICAL Psychological: mood/affect normal, judgement normal Results Laboratory Result Diagram: 12/09/19 1158 12/09/19 1158 Laboratory Laboratory Tests Test 12/09/19 12:10 12/09/19 11:58 Urine Color Yellow (YELLOW) Urine Clarity Clear (CLEAR) Urine pH 7.5 (5 - 7) Urine Specific [place] 1.020 (1.010-1.025) Urine Protein Negative (NEGATIVE) Urine Glucose (UA) Negative (NEGATIVE) Urine Ketones Negative (NEGATIVE) Urine Blood Negative (NEGATIVE) Urine Nitrite Negative (NEGATIVE) Urine Bilirubin Negative (NEGATIVE) Urine Urobilinogen 0.2 mg/dL (0.2 - 1) Urine Leukocyte Esterase Negative (NEGATIVE) Urine RBC 0-5 /HPF (0-5) Urine WBC 0-5 /HPF (0-5) Urine Epithelial Cells Many /LPF (NONE) Urine Bacteria Rare /HPF (NONE) White Blood Count 6.90 x10e3/uL (4.8-10.8) Red Blood Count 4.64 x10e6/uL (3.6-5.1) Hemoglobin 13.6 g/dL (12.0-16.0) Hematocrit 41.9 % (34.2-44.1) Mean Corpuscular Volume 90.3 fL (81-99) Mean Corpuscular Hemoglobin 29.3 pg (28-32) Mean Corpuscular Hemoglobin Concent 32.5 g/dL (31-35) Red Cell Distribution Width 12.6 % (11.7-14.4) Platelet Count 279 x10e3/uL (140-360) Neutrophils (%) (Auto) 61.2 % (38.7-80.0) Lymphocytes (%) (Auto) 22.6 % (18.0-39.1) Monocytes (%) (Auto) 7.8 % (4.4-11.3) Eosinophils (%) (Auto) 7.2 % (0.0-6.0) Basophils (%) (Auto) 0.9 % (0.0-1.0) Neutrophils # (Auto) 4.2 (2.1-6.9) Lymphocytes # (Auto) 1.6 (1.0-3.2) Monocytes # (Auto) 0.5 (0.2-0.8) Eosinophils # (Auto) 0.5 (0.0-0.4) Basophils # (Auto) 0.1 (0.0-0.1) Absolute Immature Granulocyte (auto 0.02 x10e3/uL (0-0.1) Sodium Level 141 mmol/L (136-145) Potassium Level 3.7 mmol/L (3.5-5.1) Chloride Level 108 mmol/L (98-107) Carbon Dioxide Level 23 mmol/L (22-29) Anion Gap 13.7 mmol/L (8-16) Creatinine 0.82 mg/dL (0.57-1.11) Estimat Glomerular Filtration Rate > 60 ML/MIN (60-) Glucose Level 99 mg/dL (74-118) Calcium Level 9.4 mg/dL (8.4-10.2) Total Bilirubin 0.6 mg/dL (0.2-1.2) Aspartate Amino Transf (AST/SGOT) 14 IU/L (5-34) Alanine Aminotransferase (ALT/SGPT) 19 IU/L (0-55) Alkaline Phosphatase 70 IU/L (40-150) Total Protein 7.0 g/dL (6.5-8.1) Albumin 4.1 g/dL (3.5-5.0) Globulin 2.9 g/dL (2.3-3.5) Albumin/Globulin Ratio 1.4 (0.8-2.0) Lab results reviewed: Yes Imaging Imaging results reviewed: Yes Impressions IMPRESSION: 1. No acute abdominopelvic abnormalities. 2. No visualized renal or ureteral calculi, hydronephrosis or obstruction. No CT evidence of pyelonephritis or abscess. 3. Bladder is unremarkable. Critical Care Time Subsequent provider I assumed direction of critical care for this patient from another provider of my specialty. Assessment & Plan Assessment & Plan Final Impression: (1) Urinary frequency Assessment & Plan cbc, cmp CT AP 44 F arrived to the ED with complaints of urinary frequency, recent hysterectomy- uterocele and rectocele repair Pt's urine culture from 12/05 reviewed- normal Pt's post void residual 15cc, no evidence of urinary retention Last Vital Signs Date Time Temp Pulse Resp B/P (MAP) Pulse Ox O2 Delivery O2 Flow Rate FiO2 12/09/19 12:14 54 16 131/71 100 12/09/19 11:22 98.6 Home Meds Active Scripts Ketorolac Tromethamine (TORADOL) 10 Mg Tablet, 10 MG PO TID PRN for Mild Pain (1-3) or Fever>100.8 for 5 Days, #15 TAB Prov:AWA FORD ASPHALT PAVER OPERATOR 05/13/19 Reported Medications Metronidazole (FLAGYL) 250 Mg Tablet 10/24/18 Ciprofloxacin Hcl (CIPRO) 500 Mg Tablet, 500 MG PO Q12H, #30 TAB 10/24/18 Lisinopril (LISINOPRIL) 10 Mg Tablet, 10 MG PO DAILY, #30 TAB 10/24/18 Medications in the ED Ketorolac Tromethamine 30 mg ONCE STAT IV ; Start 12/09/19 at 11:40; Stop 12/09/19 at 11:52; Status DC Sodium Chloride 1,000 ml @ 0 mls/hr Q0M STAT IV Last administered on 12/09/19at 12:10; Admin Dose 999 MLS/HR; Start 12/09/19 at 11:40; Stop 12/09/19 at 11:43; Status DC Ceftriaxone Sodium 50 ml @ 100 mls/hr ONCE ONCE IV ; Start 12/09/19 at 11:45; Stop 12/09/19 at 12:14; Status DC JEAN VAZQUEZ DO December 09, 2019 13:21
--- NOTE | 2019-12-09 13:38 | NUR ---
spoke with pt per md request explaining that lab work thus far is negative for uti and there does not appear to be a reason for admission and that assuming ct would be negative there really would not be a reason for admission; pt asked if she is ok going home if ct is negative pt states she understands there is no reason to keep her but would like to know why she is feeling the way she is rn explains she will need to follow up with her urologist and explained to pt that dr roberts will be in the room after ct results to speak with her further
--- NOTE | 2019-12-09 14:29 | Diagnostic Imaging Report ---
EXAMINATION: CT of the abdomen and pelvis with contrast. TECHNIQUE: Spiral CT images of the abdomen and pelvis were performed from the lung bases to the lesser trochanters after the intravenous administration of 100 cc of Isovue 370 and the oral administration of water. Coronal and sagittal reformatted images were obtained. COMPARISON: CT abdomen and pelvis 12/06/2019 CLINICAL HISTORY:Severe UTI DISCUSSION: ABDOMEN/PELVIS: LOWER THORAX:Unremarkable. HEPATOBILIARY: Stable hepatic segment VII and IVB hypodense lesions, previously characterized as likely hemangiomas. No intra or extrahepatic biliary ductal dilation. GALLBLADDER: Absent SPLEEN: No splenomegaly. PANCREAS: No focal masses or ductal dilatation. ADRENALS: No adrenal nodules. KIDNEYS/URETERS: No renal or ureteral calculi, hydronephrosis or obstruction. The previously described punctate nonobstructing right renal calculus may be obscured by presence of contrast. Normal bilateral renal enhancement. 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 No perinephric stranding. No solid enhancing lesions or cystic lesions. PELVIC ORGANS/BLADDER: Bladder is unremarkable, without focal lesions or wall thickening. PERITONEUM/RETROPERITONEUM: No free air or fluid. LYMPH NODES: No intra-abdominal, retroperitoneal, pelvic or inguinal lymphadenopathy. VESSELS: The celiac trunk,superior and inferior mesenteric and bilateral renal arteries are patent The portal, superior mesenteric and splenic veins are patent. Mild atherosclerotic calcification of the distal abdominal aorta. GI TRACT: No distention or wall thickening. BONES AND SOFT TISSUE: No bony destructive lesions. No soft tissue abnormalities. IMPRESSION: 1. No acute abdominopelvic abnormalities. 2. No visualized renal or ureteral calculi, hydronephrosis or obstruction. No CT evidence of pyelonephritis or abscess. 3. Bladder is unremarkable. Signed by: Dr. Osvaldo Alicia M.D. on 12/09/2019 2:25 PM
[2019-12-09 14:41] VITALS: BP 131/71
[2019-12-09] MEDS ORDERED: SODIUM CHLORIDE 0.9% 50ML 50 ML ONE (17:01)
[2019-12-09] MEDS ORDERED: IOPAMIDOL 370 MG/ML 200 ML INFUS..BTL INJ ONE (17:02)
== END 2019-12-09 15:10 | disposition home or self-care (01) ==
LOC: ER 11:06
DX: R30.0 Dysuria (principal); R35.0 Frequency of micturition; I10 Essential (primary) hypertension; E66.01 Morbid (severe) obesity due to excess calories; Z87.19 Personal history of other diseases of the digestive system
CPT/HCPCS: 36415; 74177; 80053; 81001; 85025; 87086; 99284; J7030; Q9967; J0696; J1885

== ENCOUNTER 2020-07-09 13:56 | Emergency (ER) | payer BC, OTHER ==
[~2020-07-09] VITALS: Ht 170.2 cm; Wt 118.4 kg
[2020-07-09 14:34] LABS: BASOPHILS % 0.6 % (0.0-1.0); EOSINOPHILS # (AUTO) 0.4 (0.0-0.4); HEMATOCRIT 40.4 % (34.2-44.1); HEMOGLOBIN 13.2 g/dL (12.0-16.0); LYMPHOCYTES # (AUTO) 1.5 (1.0-3.2); LYMPHOCYTES % 23.5 % (18.0-39.1); MEAN CORPUSCULAR HEMOGLOBIN 29.5 pg (28-32); MEAN CORPUSCULAR HGB CONC 32.7 g/dL (31-35); MEAN CORPUSCULAR VOLUME 90.2 fL (81-99); MONOCYTES # (AUTO) 0.6 (0.2-0.8); MONOCYTES % 8.5 % (4.4-11.3); NEUTROPHILS % 60.9 % (38.7-80.0); PLATELET COUNT 280 x10e3/uL (140-360); RED BLOOD COUNT 4.48 x10e6/uL (3.6-5.1); RED CELL DISTRIBUTION WIDTH 11.9 % (11.7-14.4)
[2020-07-09 14:47] LABS: CLARITY,URINE CLEAR (CLEAR); COLOR,URINE YELLOW (YELLOW); EPITHELIAL CELLS,URINE RARE /LPF; KETONES,URINE NEGATIVE (NEGATIVE); LEUKOCYTE ESTERASE ,URINE NEGATIVE (NEGATIVE); NITRITE,URINE NEGATIVE (NEGATIVE); PROTEIN,URINE DIPSTICK NEGATIVE (NEGATIVE); RBC,URINE 0-5 /HPF (0-5); URINE UROBILINOGEN 0.2 mg/dL (0.2 - 1); WBC,URINE (MAN) 0-5 /HPF (0-5)
[2020-07-09 14:57] LABS: ALANINE AMINOTRANSFERASE 18 IU/L (0-55); ALBUMIN 3.8 g/dL (3.5-5.0); ALBUMIN/GLOBULIN RATIO 1.4 (0.8-2.0); ALKALINE PHOSPHATASE 66 IU/L (40-150); ANION GAP 15.1 mmol/L (8-16); BLOOD UREA NITROGEN 9 mg/dL (7-26); BUN/CREATININE RATIO 12 (6-25); CALCIUM 8.8 mg/dL (8.4-10.2); CARBON DIOXIDE 25 mmol/L (22-29); CHLORIDE 104 mmol/L (98-107); CREATININE, SERUM 0.75 mg/dL (0.57-1.11); EST GLOMERULAR FILTRATION RATE > 60 ML/MIN (60-); GLUCOSE 139 mg/dL (74-118); POTASSIUM 4.1 mmol/L (3.5-5.1); SODIUM 140 mmol/L (136-145)
[2020-07-09] MEDS ORDERED: CIPROFLOXACIN 400 MG/D5W 200ML 200 ML IV SCH (15:00)
[2020-07-09] MEDS ORDERED: KETOROLAC TROMETHAMINE 30 MG/ML VIAL IV STA (15:32)
== END 2020-07-09 16:36 | disposition home or self-care (01) ==
LOC: ER 14:06
DX: N83.201 Unspecified ovarian cyst, right side (principal); R10.30 Lower abdominal pain, unspecified; I10 Essential (primary) hypertension; E66.01 Morbid (severe) obesity due to excess calories; Z87.19 Personal history of other diseases of the digestive system
CPT/HCPCS: 36415; 74176; 80053; 81001; 85025; 99283; J1885

== ENCOUNTER 2020-10-10 14:29 | Emergency (ER) | payer BC, OTHER ==
[~2020-10-10] VITALS: Ht 170.2 cm; Wt 143.3 kg
[2020-10-10] MEDS ORDERED: SODIUM CHLORIDE 0.9% 1000ML 1,000 ML IV STA (14:55)
[2020-10-10 15:14] LABS: BASOPHILS # (AUTO) 0.1 (0.0-0.1); BASOPHILS % 0.9 % (0.0-1.0); EOSINOPHILS # (AUTO) 0.6 (0.0-0.4); EOSINOPHILS % 7.1 % (0.0-6.0); HEMATOCRIT 40.6 % (34.2-44.1); HEMOGLOBIN 13.3 g/dL (12.0-16.0); MEAN CORPUSCULAR HEMOGLOBIN 29.2 pg (28-32); MEAN CORPUSCULAR HGB CONC 32.8 g/dL (31-35); MONOCYTES # (AUTO) 0.6 (0.2-0.8); MONOCYTES % 8.2 % (4.4-11.3); NEUTROPHILS # (AUTO) 4.5 (2.1-6.9); NEUTROPHILS % 57.7 % (38.7-80.0); PLATELET COUNT 298 x10e3/uL (140-360); RED BLOOD COUNT 4.56 x10e6/uL (3.6-5.1); RED CELL DISTRIBUTION WIDTH 12.5 % (11.7-14.4)
[2020-10-10 15:28] LABS: ALANINE AMINOTRANSFERASE 19 IU/L (0-55); ALBUMIN/GLOBULIN RATIO 1.4 (0.8-2.0); ALKALINE PHOSPHATASE 73 IU/L (40-150); ANION GAP 13.6 mmol/L (8-16); BLOOD UREA NITROGEN 13 mg/dL (7-26); BUN/CREATININE RATIO 16 (6-25); CALCIUM 8.7 mg/dL (8.4-10.2); CARBON DIOXIDE 24 mmol/L (22-29); CHLORIDE 107 mmol/L (98-107); CREATININE, SERUM 0.81 mg/dL (0.57-1.11); EST GLOMERULAR FILTRATION RATE > 60 ML/MIN (60-); GLUCOSE 122 mg/dL (74-118); LIPASE 38 U/L (8-78); POTASSIUM 3.6 mmol/L (3.5-5.1); SODIUM 141 mmol/L (136-145)
[2020-10-10] MEDS ORDERED: SODIUM CHLORIDE 0.9% 50ML 50 ML ONE (17:27)
[2020-10-10] MEDS ORDERED: IOPAMIDOL 370 MG/ML 200 ML INFUS..BTL INJ ONE ×2 (17:27→17:31)
[2020-10-10 17:29] VITALS: BP 111/66
== END 2020-10-10 17:38 | disposition home or self-care (01) ==
LOC: ER 14:40
DX: R10.13 Epigastric pain (principal); R11.2 Nausea with vomiting, unspecified; I10 Essential (primary) hypertension; E66.01 Morbid (severe) obesity due to excess calories; Z87.19 Personal history of other diseases of the digestive system
CPT/HCPCS: 36415; 74177; 80053; 81025; 83690; 83880; 85025; 99283; J7030; Q9967

== ENCOUNTER 2020-12-13 11:06 | Emergency (ER) | payer OTHER ==
[~2020-12-13] VITALS: Ht 170.2 cm; Wt 143.3 kg
[2020-12-13] MEDS ORDERED: SODIUM CHLORIDE 0.9% 1000ML 1,000 ML IV STA (11:29)
[2020-12-13] MEDS ORDERED: BELLADONNA ALK/PHENOBARBITAL 5 ML UDC PO NR (11:30)
[2020-12-13] MEDS ORDERED: PANTOPRAZOLE 40 MG 10ML VIAL IV NR (11:30)
[2020-12-13] MEDS ORDERED: LIDOCAINE VISC 2% SOLN 15 ML UDC PO NR (11:30)
[2020-12-13] MEDS ORDERED: MAGNESIUM/ALUMINUM/SIMETHICONE 30 ML UDC PO NR (11:30)
[2020-12-13 11:57] LABS: BASOPHILS # (AUTO) 0.1 (0.0-0.1); BASOPHILS % 0.7 % (0.0-1.0); CLARITY,URINE CLEAR (CLEAR); COLOR,URINE YELLOW (YELLOW); EOSINOPHILS # (AUTO) 0.3 (0.0-0.4); EOSINOPHILS % 4.5 % (0.0-6.0); HEMATOCRIT 42.9 % (34.2-44.1); HEMOGLOBIN 14.2 g/dL (12.0-16.0); KETONES,URINE NEGATIVE (NEGATIVE); LEUKOCYTE ESTERASE ,URINE NEGATIVE (NEGATIVE); LYMPHOCYTES # (AUTO) 1.4 (1.0-3.2); LYMPHOCYTES % 21.4 % (18.0-39.1); MEAN CORPUSCULAR HEMOGLOBIN 29.5 pg (28-32); MEAN CORPUSCULAR HGB CONC 33.1 g/dL (31-35); MEAN CORPUSCULAR VOLUME 89.2 fL (81-99); MONOCYTES # (AUTO) 0.6 (0.2-0.8); MONOCYTES % 8.5 % (4.4-11.3); NEUTROPHILS # (AUTO) 4.3 (2.1-6.9); NEUTROPHILS % 64.6 % (38.7-80.0); NITRITE,URINE NEGATIVE (NEGATIVE); PLATELET COUNT 279 x10e3/uL (140-360); PROTEIN,URINE DIPSTICK NEGATIVE (NEGATIVE); RED BLOOD COUNT 4.81 x10e6/uL (3.6-5.1); RED CELL DISTRIBUTION WIDTH 12.1 % (11.7-14.4); URINE UROBILINOGEN 0.2 mg/dL (0.2 - 1)
[2020-12-13 12:05] LABS: INR 0.89; PROTHROMBIN TIME 12.6 seconds (11.9-14.5)
[2020-12-13 12:06] LABS: PARTIAL THROMBOPLASTIN TIME 25.5 seconds (23.8-35.5)
[2020-12-13 12:08] LABS: EPITHELIAL CELLS,URINE FEW /LPF; RBC,URINE 0-5 /HPF (0-5); WBC,URINE (MAN) 0-5 /HPF (0-5)
[2020-12-13 12:15] LABS: ALANINE AMINOTRANSFERASE 24 IU/L (0-55); ALBUMIN 4.2 g/dL (3.5-5.0); ALBUMIN/GLOBULIN RATIO 1.4 (0.8-2.0); ALKALINE PHOSPHATASE 72 IU/L (40-150); ANION GAP 17.2 mmol/L (8-16); BLOOD UREA NITROGEN 15 mg/dL (7-26); BUN/CREATININE RATIO 19 (6-25); CALCIUM 9.1 mg/dL (8.4-10.2); CARBON DIOXIDE 24 mmol/L (22-29); CHLORIDE 103 mmol/L (98-107); CREATINE KINASE 110 IU/L (29-168); CREATININE, SERUM 0.77 mg/dL (0.57-1.11); EST GLOMERULAR FILTRATION RATE > 60 ML/MIN (60-); GLUCOSE 110 mg/dL (74-118); POTASSIUM 4.2 mmol/L (3.5-5.1); SODIUM 140 mmol/L (136-145)
== END 2020-12-13 14:29 | disposition home or self-care (01) ==
LOC: ER 11:13
DX: R10.13 Epigastric pain (principal); R07.89 Other chest pain; K29.70 Gastritis, unspecified, without bleeding; K21.9 Gastro-esophageal reflux disease without esophagitis; I10 Essential (primary) hypertension; F41.9 Anxiety disorder, unspecified; E66.01 Morbid (severe) obesity due to excess calories; Z87.19 Personal history of other diseases of the digestive system
CPT/HCPCS: 36415; 71045; 80053; 81001; 82550; 82553; 83690; 83880; 84484; 85025; 85379; 85610; 85730; 87086; 93005; 99284; C9113; J7030

== ENCOUNTER 2021-03-19 00:21 | Emergency (ER) | payer BC, OTHER ==
[~2021-03-19] VITALS: Ht 170.2 cm; Wt 143.3 kg
[2021-03-19 01:31] LABS: CLARITY,URINE CLOUDY (CLEAR); COLOR,URINE YELLOW (YELLOW)
[2021-03-19 01:32] LABS: KETONES,URINE NEGATIVE (NEGATIVE); LEUKOCYTE ESTERASE ,URINE 1+ (NEGATIVE); NITRITE,URINE NEGATIVE (NEGATIVE); PROTEIN,URINE DIPSTICK NEGATIVE (NEGATIVE); URINE UROBILINOGEN 0.2 mg/dL (0.2 - 1)
[2021-03-19 01:46] LABS: WBC,URINE (MAN) >50 /HPF (0-5)
[2021-03-19 01:47] LABS: BACTERIA,URINE MODERATE /HPF; EPITHELIAL CELLS,URINE FEW /LPF; RENAL EPITHELIAL CELLS,URINE FEW
[2021-03-19] MEDS ORDERED: CEPHALEXIN500 MG PO (01:59)
[2021-03-19] MEDS ORDERED: PYRIDIUM100 MG PO (01:59)
[2021-03-19] MEDS ORDERED: ASPIRIN 81 MG CHEW TAB PO ONE (04:45)
[2021-03-19 05:04] LABS: BASOPHILS # (AUTO) 0.1 (0.0-0.1); BASOPHILS % 0.6 % (0.0-1.0); EOSINOPHILS # (AUTO) 0.3 (0.0-0.4); EOSINOPHILS % 3.4 % (0.0-6.0); HEMATOCRIT 40.7 % (34.2-44.1); HEMOGLOBIN 13.5 g/dL (12.0-16.0); LYMPHOCYTES # (AUTO) 1.9 (1.0-3.2); LYMPHOCYTES % 20.2 % (18.0-39.1); MEAN CORPUSCULAR HEMOGLOBIN 29.6 pg (28-32); MEAN CORPUSCULAR HGB CONC 33.2 g/dL (31-35); MEAN CORPUSCULAR VOLUME 89.3 fL (81-99); MONOCYTES # (AUTO) 0.8 (0.2-0.8); MONOCYTES % 8.1 % (4.4-11.3); NEUTROPHILS # (AUTO) 6.2 (2.1-6.9); NEUTROPHILS % 67.3 % (38.7-80.0); PLATELET COUNT 265 x10e3/uL (140-360); RED BLOOD COUNT 4.56 x10e6/uL (3.6-5.1); RED CELL DISTRIBUTION WIDTH 12.6 % (11.7-14.4)
[2021-03-19 05:19] LABS: ALANINE AMINOTRANSFERASE 23 IU/L (0-55); ALBUMIN 3.9 g/dL (3.5-5.0); ALBUMIN/GLOBULIN RATIO 1.3 (0.8-2.0); ALKALINE PHOSPHATASE 64 IU/L (40-150); ANION GAP 14.8 mmol/L (8-16); BLOOD UREA NITROGEN 15 mg/dL (7-26); BUN/CREATININE RATIO 19 (6-25); CALCIUM 8.9 mg/dL (8.4-10.2); CARBON DIOXIDE 23 mmol/L (22-29); CHLORIDE 106 mmol/L (98-107); CREATINE KINASE 94 IU/L (29-168); CREATININE, SERUM 0.78 mg/dL (0.57-1.11); EST GLOMERULAR FILTRATION RATE 80 ML/MIN (60-); GLUCOSE 129 mg/dL (74-118); POTASSIUM 3.8 mmol/L (3.5-5.1); SODIUM 140 mmol/L (136-145)
== END 2021-03-19 08:37 | disposition home or self-care (01) ==
LOC: ER 00:56
DX: N39.0 Urinary tract infection, site not specified (principal); I10 Essential (primary) hypertension; K21.9 Gastro-esophageal reflux disease without esophagitis; F41.9 Anxiety disorder, unspecified; E66.01 Morbid (severe) obesity due to excess calories; Z68.42 Body mass index [BMI] 45.0-49.9, adult; Z79.899 Other long term (current) drug therapy; Z87.442 Personal history of urinary calculi
CPT/HCPCS: 36415; 71045; 74176; 80053; 81001; 82550; 82553; 84484; 85025; 93005; 99284

== ENCOUNTER 2021-05-11 22:52 | Emergency (ER) | payer BC, OTHER ==
[~2021-05-11] VITALS: Ht 170.2 cm; Wt 143.3 kg
[~2021-05-11 22:52] MED LIST changes: +CEPHALEXIN500 MG PO; +PYRIDIUM100 MG PO
[2021-05-11 23:32] LABS: BASOPHILS # (AUTO) 0.1 (0.0-0.1); BASOPHILS % 0.7 % (0.0-1.0); EOSINOPHILS # (AUTO) 0.4 (0.0-0.4); EOSINOPHILS % 5.9 % (0.0-6.0); HEMOGLOBIN 13.2 g/dL (12.0-16.0); LYMPHOCYTES % 28.6 % (18.0-39.1); MEAN CORPUSCULAR HEMOGLOBIN 29.3 pg (28-32); MEAN CORPUSCULAR HGB CONC 32.2 g/dL (31-35); MEAN CORPUSCULAR VOLUME 90.9 fL (81-99); MONOCYTES # (AUTO) 0.7 (0.2-0.8); MONOCYTES % 10.4 % (4.4-11.3); NEUTROPHILS # (AUTO) 3.7 (2.1-6.9); NEUTROPHILS % 53.8 % (38.7-80.0); PLATELET COUNT 257 x10e3/uL (140-360); RED BLOOD COUNT 4.51 x10e6/uL (3.6-5.1); RED CELL DISTRIBUTION WIDTH 12.3 % (11.7-14.4)
[2021-05-11 23:51] LABS: ALANINE AMINOTRANSFERASE 27 IU/L (0-55); ALBUMIN 3.9 g/dL (3.5-5.0); ALBUMIN/GLOBULIN RATIO 1.4 (0.8-2.0); ALKALINE PHOSPHATASE 64 IU/L (40-150); BLOOD UREA NITROGEN 15 mg/dL (7-26); CALCIUM 8.7 mg/dL (8.4-10.2); CARBON DIOXIDE 23 mmol/L (22-29); CHLORIDE 106 mmol/L (98-107); CREATINE KINASE 100 IU/L (29-168); GLUCOSE 111 mg/dL (74-118); SODIUM 139 mmol/L (136-145)
[2021-05-12 00:17] LABS: BUN/CREATININE RATIO 18 (6-25); CREATININE, SERUM 0.83 mg/dL (0.57-1.11); EST GLOMERULAR FILTRATION RATE 74 ML/MIN (60-)
[2021-05-12 00:18] LABS: CLARITY,URINE SL CLOUDY (CLEAR); COLOR,URINE YELLOW (YELLOW); KETONES,URINE NEGATIVE (NEGATIVE); LEUKOCYTE ESTERASE ,URINE NEGATIVE (NEGATIVE); NITRITE,URINE NEGATIVE (NEGATIVE); PROTEIN,URINE DIPSTICK NEGATIVE (NEGATIVE); URINE UROBILINOGEN 0.2 mg/dL (0.2 - 1)
[2021-05-12 00:28] LABS: BACTERIA,URINE FEW /HPF; EPITHELIAL CELLS,URINE FEW /LPF; RBC,URINE 0-5 /HPF (0-5); WBC,URINE (MAN) 0-5 /HPF (0-5)
[2021-05-12] MEDS ORDERED: ACETAMINOPHEN 325 MG TAB PO STA (00:56)
[2021-05-12] MEDS ORDERED: LORAZEPAM INJ 2 MG/ML VIAL IV STA (00:56)
[2021-05-12] MEDS ORDERED: ONDANSETRON HCL INJ 2MG/ML 2ML 2 MG/ML VIAL IV STA (01:20)
[2021-05-12 01:30] VITALS: BP 122/65
== END 2021-05-12 02:03 | disposition home or self-care (01) ==
LOC: ER 22:59
DX: R51.9 Headache, unspecified (principal); R00.2 Palpitations; R11.0 Nausea; T40.425A Adverse effect of tramadol, initial encounter; F41.9 Anxiety disorder, unspecified
CPT/HCPCS: 36415; 70450; 71045; 80053; 81001; 81025; 82550; 82553; 83880; 84484; 85025; 93005; 99284; J2060; J2405

== ENCOUNTER 2021-10-24 08:35 | Emergency (ER) | payer BC, OTHER ==
[~2021-10-24] VITALS: Ht 170.2 cm; Wt 150.1 kg
[2021-10-24] MEDS ORDERED: SODIUM CHLORIDE 0.9% 1000ML 1,000 ML IV STA (08:40)
[2021-10-24] MEDS ORDERED: ONDANSETRON HCL INJ 2MG/ML 2ML 2 MG/ML VIAL IV STA (09:09)
[2021-10-24 09:20] LABS: BASOPHILS % 0.3 % (0.0-1.0); EOSINOPHILS # (AUTO) 0.2 (0.0-0.4); EOSINOPHILS % 2.6 % (0.0-6.0); HEMATOCRIT 44.3 % (34.2-44.1); HEMOGLOBIN 14.5 g/dL (12.0-16.0); LYMPHOCYTES # (AUTO) 0.5 (1.0-3.2); LYMPHOCYTES % 6.7 % (18.0-39.1); MEAN CORPUSCULAR HEMOGLOBIN 29.7 pg (28-32); MEAN CORPUSCULAR HGB CONC 32.7 g/dL (31-35); MEAN CORPUSCULAR VOLUME 90.8 fL (81-99); MONOCYTES # (AUTO) 0.5 (0.2-0.8); MONOCYTES % 7.1 % (4.4-11.3); NEUTROPHILS # (AUTO) 6.1 (2.1-6.9); NEUTROPHILS % 81.8 % (38.7-80.0); PLATELET COUNT 196 x10e3/uL (140-360); RED BLOOD COUNT 4.88 x10e6/uL (3.6-5.1); RED CELL DISTRIBUTION WIDTH 12.6 % (11.7-14.4)
[2021-10-24] MEDS ORDERED: ONDANSETRON HCL INJ 2MG/ML 2ML 2 MG/ML VIAL ONE (09:21)
[2021-10-24 09:23] LABS: CLARITY,URINE CLEAR (CLEAR); COLOR,URINE YELLOW (YELLOW); KETONES,URINE NEGATIVE (NEGATIVE); LEUKOCYTE ESTERASE ,URINE NEGATIVE (NEGATIVE); NITRITE,URINE NEGATIVE (NEGATIVE); PROTEIN,URINE DIPSTICK NEGATIVE (NEGATIVE); URINE UROBILINOGEN 0.2 mg/dL (0.2 - 1)
[2021-10-24 09:31] LABS: BACTERIA,URINE FEW /HPF; EPITHELIAL CELLS,URINE MODERATE /LPF; RBC,URINE 0-5 /HPF (0-5); WBC,URINE (MAN) 0-5 /HPF (0-5)
[2021-10-24 09:45] LABS: ALBUMIN 3.8 g/dL (3.5-5.0); ALBUMIN/GLOBULIN RATIO 1.3 (0.8-2.0); ANION GAP 12.1 mmol/L (8-16); CALCIUM 8.1 mg/dL (8.4-10.2); CREATININE, SERUM 0.74 mg/dL (0.57-1.11); POTASSIUM 4.1 mmol/L (3.5-5.1)
[2021-10-24] MEDS ORDERED: METOCLOPRAMIDE HCL 10 MG/2ML VIAL ONE (10:04)
[2021-10-24] MEDS ORDERED: METOCLOPRAMIDE HCL 10 MG/2ML VIAL IV ONE (10:30)
[2021-10-24] MEDS ORDERED: IOPAMIDOL 370 MG/ML 200 ML INFUS..BTL INJ ONE (10:40)
[2021-10-24] MEDS ORDERED: SODIUM CHLORIDE 0.9% 50ML 50 ML ONE (10:40)
[2021-10-24] MEDS ORDERED: ONDANSETRON ODT4 MG PO (11:23)
[2021-10-24 11:36] VITALS: BP 138/72
== END 2021-10-24 11:37 | disposition home or self-care (01) ==
LOC: ER 08:48
DX: R11.2 Nausea with vomiting, unspecified (principal); K52.9 Noninfective gastroenteritis and colitis, unspecified; I10 Essential (primary) hypertension; K21.9 Gastro-esophageal reflux disease without esophagitis; F41.9 Anxiety disorder, unspecified; E66.01 Morbid (severe) obesity due to excess calories; Z20.822 Contact with and (suspected) exposure to COVID-19; Z87.19 Personal history of other diseases of the digestive system
CPT/HCPCS: 36415; 74177; 80053; 81001; 83690; 85025; 99283; J2405; J2765; J7030; Q9967; U0002

== ENCOUNTER 2021-10-26 08:27 | Emergency (ER) | payer BC, OTHER ==
[~2021-10-26] VITALS: Ht 170.2 cm; Wt 150.1 kg
[~2021-10-26 08:27] MED LIST changes: +ONDANSETRON ODT4 MG PO
[2021-10-26] MEDS ORDERED: SODIUM CHLORIDE 0.9% 1000ML 1,000 ML IV STA (08:42)
[2021-10-26 09:02] LABS: BASOPHILS % 0.2 % (0.0-1.0); EOSINOPHILS # (AUTO) 0.1 (0.0-0.4); EOSINOPHILS % 1.2 % (0.0-6.0); HEMATOCRIT 44.9 % (34.2-44.1); HEMOGLOBIN 14.9 g/dL (12.0-16.0); LYMPHOCYTES # (AUTO) 0.8 (1.0-3.2); LYMPHOCYTES % 20.3 % (18.0-39.1); MEAN CORPUSCULAR HEMOGLOBIN 29.4 pg (28-32); MEAN CORPUSCULAR HGB CONC 33.2 g/dL (31-35); MEAN CORPUSCULAR VOLUME 88.7 fL (81-99); MONOCYTES # (AUTO) 0.6 (0.2-0.8); MONOCYTES % 13.9 % (4.4-11.3); NEUTROPHILS # (AUTO) 2.6 (2.1-6.9); NEUTROPHILS % 63.9 % (38.7-80.0); PLATELET COUNT 216 x10e3/uL (140-360); RED BLOOD COUNT 5.06 x10e6/uL (3.6-5.1); RED CELL DISTRIBUTION WIDTH 12.8 % (11.7-14.4)
[2021-10-26 09:23] LABS: ALBUMIN 3.7 g/dL (3.5-5.0); ALBUMIN/GLOBULIN RATIO 1.2 (0.8-2.0); ANION GAP 14.3 mmol/L (8-16); CALCIUM 8.3 mg/dL (8.4-10.2); CREATININE, SERUM 0.78 mg/dL (0.57-1.11); POTASSIUM 3.3 mmol/L (3.5-5.1)
[2021-10-26] MEDS ORDERED: POTASSIUM CHLORIDE 20 MEQ TAB CR PO STA (09:44)
[2021-10-26] MEDS ORDERED: POTASSIUM CHLORIDE 20 MEQ TAB CR PO ONE (09:58)
== END 2021-10-26 10:47 | disposition home or self-care (01) ==
LOC: ER 08:35
DX: K52.9 Noninfective gastroenteritis and colitis, unspecified (principal); I10 Essential (primary) hypertension; K21.9 Gastro-esophageal reflux disease without esophagitis; F41.9 Anxiety disorder, unspecified; E66.01 Morbid (severe) obesity due to excess calories; Z87.19 Personal history of other diseases of the digestive system
CPT/HCPCS: 36415; 80053; 85025; 99283; J7030

== ENCOUNTER 2022-04-23 19:43 | Emergency (ER) | payer BC, OTHER ==
[~2022-04-23] VITALS: Ht 170.2 cm; Wt 150.1 kg
[2022-04-23 20:34] LABS: CLARITY,URINE CLEAR (CLEAR); COLOR,URINE YELLOW (YELLOW); KETONES,URINE NEGATIVE (NEGATIVE); LEUKOCYTE ESTERASE ,URINE NEGATIVE (NEGATIVE); NITRITE,URINE NEGATIVE (NEGATIVE); PROTEIN,URINE DIPSTICK NEGATIVE (NEGATIVE); URINE UROBILINOGEN 0.2 mg/dL (0.2 - 1)
[2022-04-23 20:44] LABS: EPITHELIAL CELLS,URINE RARE /LPF
[2022-04-23] MEDS ORDERED: KETOROLAC TROMETHAMINE 60 MG/2 ML VIAL IM ONE (21:45)
[2022-04-23] MEDS ORDERED: ONDANSETRON HCL 4 MG ORAL DISINTEGRATING TAB PO ONE (21:45)
[2022-04-23] MEDS ORDERED: ONDANSETRON ODT4 MG PO (21:48)
[2022-04-23] MEDS ORDERED: FLOMAX0.4 MG PO (21:48)
[2022-04-23] MEDS ORDERED: PYRIDIUM200 MG PO (21:48)
[2022-04-23] MEDS ORDERED: KETOROLAC TROME10 MG PO (21:48)
== END 2022-04-23 22:50 | disposition home or self-care (01) ==
LOC: ER 19:52
DX: R33.9 Retention of urine, unspecified (principal); R10.12 Left upper quadrant pain; I10 Essential (primary) hypertension; F41.9 Anxiety disorder, unspecified; K21.9 Gastro-esophageal reflux disease without esophagitis; K57.90 Diverticulosis of intestine, part unspecified, without perforation or abscess without bleeding; Z88.6 Allergy status to analgesic agent; Z88.1 Allergy status to other antibiotic agents; Z88.5 Allergy status to narcotic agent; Z88.2 Allergy status to sulfonamides; Z88.8 Allergy status to other drugs, medicaments and biological substances
CPT/HCPCS: 51700; 74176; 81001; 96372; 99283; J1885; Q0162

== ENCOUNTER 2022-06-04 18:28 | Emergency (ER) | payer BC, OTHER ==
[~2022-06-04] VITALS: Ht 170.2 cm; Wt 149.7 kg
[~2022-06-04 18:28] MED LIST changes: +FLOMAX0.4 MG PO; +PYRIDIUM200 MG PO
[2022-06-04] MEDS ORDERED: KETOROLAC TROMETHAMINE 30 MG/ML VIAL IM STA (18:39)
[2022-06-04 18:59] LABS: BASOPHILS # (AUTO) 0.1 (0.0-0.1); BASOPHILS % 0.7 % (0.0-1.0); EOSINOPHILS # (AUTO) 0.4 (0.0-0.4); EOSINOPHILS % 5.3 % (0.0-6.0); HEMATOCRIT 40.4 % (34.2-44.1); HEMOGLOBIN 13.2 g/dL (12.0-16.0); LYMPHOCYTES # (AUTO) 2.4 (1.0-3.2); LYMPHOCYTES % 35.5 % (18.0-39.1); MEAN CORPUSCULAR HEMOGLOBIN 31.2 pg (28-32); MEAN CORPUSCULAR HGB CONC 32.7 g/dL (31-35); MEAN CORPUSCULAR VOLUME 95.5 fL (81-99); MONOCYTES # (AUTO) 0.5 (0.2-0.8); MONOCYTES % 7.3 % (4.4-11.3); NEUTROPHILS # (AUTO) 3.5 (2.1-6.9); NEUTROPHILS % 50.8 % (38.7-80.0); PLATELET COUNT 237 x10e3/uL (140-360); RED BLOOD COUNT 4.23 x10e6/uL (3.6-5.1); RED CELL DISTRIBUTION WIDTH 11.9 % (11.7-14.4)
[2022-06-04 19:12] LABS: ALBUMIN 3.7 g/dL (3.5-5.0); ALBUMIN/GLOBULIN RATIO 1.3 (0.8-2.0); ANION GAP 16.7 mmol/L (8-16); CALCIUM 8.7 mg/dL (8.4-10.2); CREATININE, SERUM 0.82 mg/dL (0.57-1.11); POTASSIUM 3.7 mmol/L (3.5-5.1)
== END 2022-06-04 19:50 | disposition home or self-care (01) ==
LOC: ER 18:40
DX: R51.9 Headache, unspecified (principal); D35.2 Benign neoplasm of pituitary gland; I10 Essential (primary) hypertension; K21.9 Gastro-esophageal reflux disease without esophagitis; F41.9 Anxiety disorder, unspecified; E66.01 Morbid (severe) obesity due to excess calories
CPT/HCPCS: 36415; 70450; 80053; 85025; 99284; J1885